=== PATIENT | female | born 1965 | race Caucasian/White ===

== ENCOUNTER 2016-06-05 17:42 | Emergency (ER) | payer MEDICAID ==
[2016-06-05] MEDS ORDERED: ALBUTEROL NEB 2.5 MG/3 ML INH STA (18:09)
[2016-06-05] MEDS ORDERED: SODIUM CHLORIDE 0.9% 1,000 ML IV ONE (18:09)
[2016-06-05] MEDS ORDERED: HYDROmorphone 1 MG/ML SYRINGE IVP STA (18:09)
[2016-06-05] MEDS ORDERED: KETOROLAC 60 MG/2 ML VIAL IVP STA (18:09)
[2016-06-05] MEDS ORDERED: ALBUTEROL NEB 2.5 MG/3 ML INH ONE (18:17)
[2016-06-05] MEDS ORDERED: KETOROLAC 30 MG/ML VIAL ONE (18:28)
== END 2016-06-05 19:35 | disposition home or self-care (01) ==
DX: J20.8 Acute bronchitis due to other specified organisms (principal); I10 Essential (primary) hypertension
CPT/HCPCS: 71020; 87275; 87276; 94640; 96374; 99283; 99284; J7613

== ENCOUNTER 2016-08-01 08:56 | Outpatient (CLI) | payer MEDICAID | END 2016-08-01 08:57 | disposition home or self-care (01) | DX: I10 Essential (primary) hypertension (principal); Z13.220 Encounter for screening for lipoid disorders; E03.9 Hypothyroidism, unspecified ==

== ENCOUNTER 2016-08-23 21:08 | Emergency (ER) | payer MEDICAID ==
[2016-08-23] MEDS ORDERED: HYDROcod/ACET 5/325 Prepack 6 PO STA (21:34)
[2016-08-23] MEDS ORDERED: diazePAM INJ 5 MG/ML SYRINGE IM STA (21:34)
[2016-08-23] MEDS ORDERED: HYDROcod/ACET 5/325 Prepack 6 PO ONE ×2 (21:40→21:43)
[2016-08-23] MEDS ORDERED: diazePAM INJ 5 MG/ML SYRINGE ONE ×2 (21:40→21:44)
== END 2016-08-23 21:48 | disposition home or self-care (01) ==
DX: M54.12 Radiculopathy, cervical region (principal); I10 Essential (primary) hypertension; E03.9 Hypothyroidism, unspecified

== ENCOUNTER 2016-10-17 10:50 | Outpatient (CLI) | payer MEDICAID ==
[2016-10-18 21:03] LABS: TEST RESULT REPORT (())
== END 2016-10-17 10:51 | disposition home or self-care (01) ==
LOC: LAB.R 10:50
PROVIDERS: ATTEND Nurse Practitioner Family
DX: K52.9 Noninfective gastroenteritis and colitis, unspecified (principal)
CPT/HCPCS: 81599; 87045; 87046; 87329; 87338; 87493

== ENCOUNTER 2016-12-06 22:08 | Emergency (ER) | payer MEDICAID ==
[2016-12-06 22:29] VITALS: BP 126/85
[2016-12-06] MEDS ORDERED: KETOROLAC 60 MG/2 ML VIAL IM STA (22:36)
[2016-12-06] MEDS ORDERED: DEXAMETHASONE 10 MG/ML VIAL PO STA (22:37)
[2016-12-06] MEDS ORDERED: DEXAMETHASONE 10 MG/ML VIAL ONE (22:45)
[2016-12-06] MEDS ORDERED: KETOROLAC 60 MG/2 ML VIAL ONE (22:45)
--- NOTE | 2016-12-06 22:50 | ED Physician Documentation ---
PD HPI BACK PAIN - Stated complaint Stated Complaint: BACK PX - Chief complaint Chief Complaint: Back Pain - History obtained from History obtained from: Patient - History of Present Illness Timing - onset: Chronic Timing - details: Gradual onset, Waxing and waning Location: Lower, Right Quality: Pain, Spasm, Similar to prior episodes Associated symptoms: No: Fever, Weakness, Incontinent of urine, Unable to urinate, Hematuria Similar symptoms before: Work up / diagnostics, Treatment, Follow up Recently seen: Not recently seen - Additional information Additional information: Patient is a 51 year old female with a history of multiple orthopedic problems including sciatica who is presenting to the emergency department for right lower back pain with radiation down her right leg. Patient states that it is similar to her previous episodes. Patient denies any trauma or neurological disfunction. Review of Systems Constitutional: denies: Fever, Chills Eyes: denies: Decreased vision Nose: denies: Rhinorrhea / runny nose, Congestion Throat: denies: Sore throat Cardiac: denies: Chest pain / pressure GI: denies: Abdominal Pain, Nausea, Vomiting : denies: Dysuria, Frequency, Hesitancy, Unable to Void, Incontinent Skin: denies: Rash, Lesions, Abrasion (s) Musculoskeletal: reports: Back pain, Extremity pain Neurologic: reports: Numbness. 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 : None HEENT: None Psych: ADD/ADHD Musculoskeletal: None, Chronic back pain Derm: None - Past Surgical History Past Surgical History: Yes General: Appendectomy /CHURCH ADMINISTRATOR: section - Present Medications Home Medications: Ambulatory Orders Medication Instructions Recorded Confirmed Levothyroxine [Synthroid] 25 mcg PO QDAC 11/12/12 06/05/16 Hydrochlorothiazide 1 tab PO DAILY 06/05/14 06/05/16 Dextroamphetamine/Amphetamine 20 mg PO BID #8 tablet 02/11/15 06/05/16 [Adderall 20 mg Tablet] HYDROcod/ACETAM 5/325 [[place] 5/325] 1 - 2 ea PO Q6H PRN #15 tablet 08/23/16 traZODone [Desyrel] 100 mg PO BID 08/23/16 08/23/16 - Allergies Allergies/Adverse Reactions: Allergies Allergy/AdvReac Type Severity Reaction Status Date / Time Penicillins Allergy Intermediate Hives Verified 12/06/16 22:29 - Social History Does the pt smoke?: No Smoking Status: Never smoker Does the pt drink ETOH?: No Does the pt have substance abuse?: No - Immunizations Immunizations are current?: Yes - POLST Patient has POLST: No PD ED PE NORMAL - Vitals Vital signs reviewed: Yes - General General: Alert and oriented X 3, No acute distress - HEENT HEENT: Atraumatic, PERRL - Neck Neck: Supple, no meningeal sign - Cardiac Cardiac: RRR, No murmur - Respiratory Respiratory: No respiratory distress - Abdomen Abdomen: Soft, Non distended - Derm Derm: Normal color, Warm and dry, No rash - Neuro Neuro: Alert and oriented X 3, No motor deficit, No sensory deficit, Normal speech - Psych Psych: Normal mood PD ED PE EXPANDED - Extremities Extremities: Right leg (tenderness to palpation over right hip radiating down her right leg, no gross deformity) Results - Vitals Vitals: Vital Signs - 24 hr 12/06/16 22:27 Temperature 36.8 C Heart Rate 81 Respiratory 18 Rate Blood Pressure 126/85 H O2 Saturation 99 Oxygen O2 Source Room air PD MEDICAL DECISION MAKING - ED course Complexity details: reviewed old records, re-evaluated patient, considered differential, d/w patient, d/w family ED course: Patient was seen and examined at bedside. patient had normal vital signs and was in no acute distress. patient was treated with toradol and decadron. Patient was able to ambulate without difficulty and showed no signs of neurological disfunction. patient required no further work up at this time and was stable for discharge with outpatient follow up. Departure - Departure Disposition: 01 Home, Self Care Clinical Impression: Sciatica Condition: Good Instructions: ED Sciatica Follow-Up: Alexandra Levin ARNP [Primary Care Provider] - As Needed Comments: Your symtpoms today are likely an exacerbation of your sciatica. You should continue with your home therapy with the stretching and meds you have been prescribed. You should follow up with your pmd if your symptoms persist. You may return to the emergency department at any time for new, worsening or uncontrollable symptoms.
== END 2016-12-06 23:00 | disposition home or self-care (01) ==
LOC: ED 22:08
DX: M54.41 Lumbago with sciatica, right side (principal); I10 Essential (primary) hypertension; E03.9 Hypothyroidism, unspecified
CPT/HCPCS: 96372; 99283

== ENCOUNTER 2017-01-04 07:48 | Outpatient (CLI) | payer MEDICAID ==
--- NOTE | 2017-01-04 09:26 | MRI Report ---
EXAM: MRI CERVICAL SPINE WITHOUT CONTRAST EXAM DATE: 01/04/2017 08:32 AM. CLINICAL HISTORY: Report of right neck pain and swelling for years. History of previous spine injury. COMPARISONS: No prior MRI. Correlation is made with previous cervical spine CT performed 12/08/2014.. TECHNIQUE: Multiplanar, multisequence T1-weighted and fluid-sensitive sequences of the cervical spine without contrast. Other: None. FINDINGS: Neurologic Structures: The visualized posterior fossa structures are unremarkable. No signal abnormal ity in the visualized spinal cord. Alignment: No change of alignment. Approximately 2 mm chronic degenerative C3 on C4 anterolisthesis. Bone Marrow: Mild reactive appearing marrow edema is seen in the right C1 lateral mass adjacent to th e odontoid process and right occipital condyle. Asymmetric arthritic changes were seen previously on the CT in this vicinity, at the right atlantoaxial and atlantooccipital joints. Interspace Levels/Facets: C1-C2: Patent central canal. Mild appearing chronic asymmetric arthritic changes are present on the r ight. C2-C3: Mild degenerative disk disease. Marginal spurring and shallow disk bulge but no central stenos is or cord impingement. Mild bilateral facet arthropathy. Widely patent left neural foramen. The righ t neural foramen is at least mildly stenotic. C3-C4: Moderate degenerative disk disease. Shallow broad-based disk bulge. Minimal central stenosis b ut no cord impingement. Patent right neural foramen. Foraminal stenosis on the left is mild to modera te. Moderately prominent facet arthropathy on the left. Mild to moderate right facet arthropathy is p resent. 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 C4-C5: Minimal to mild degenerative disk disease. Shallow asymmetric left of midline broad-based disk bulge. No significant central stenosis. Patent right foramen. Asymmetric moderately prominent hypert rophic degenerative facet arthropathy on the left which combined with uncinate process hypertrophy an d spurring creates the appearance of at least moderate degenerative foraminal stenosis on the left. C5-C6: Mild to moderate degenerative disk disease and facet arthropathy. Broad-based disk bulge with ventral thecal sac indentation but no significant central stenosis or cord impingement. Widely patent right foramen. Minimal to mild left foraminal narrowing from uncinate process and facet hypertrophy. C6-C7: Mild degenerative disk disease. Shallow bulging annulus. Mild facet arthropathy. No stenosis. C7-T1: Mild to moderate facet arthropathy. Intact disk space. No discrete herniation or stenosis. Musculature: Normal. No edema or fatty atrophy. Other: None. IMPRESSION: 1. Chronic multilevel hypertrophic degenerative changes are present at multiple cervical spinal level s as detailed above. 2. Hypertrophic degenerative facet arthropathy is present at multiple levels, especially prominent on the left at C3-C4, C4-C5 and C5-C6. 3. 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 4. Mild disk bulges at multiple levels but no significant central stenosis or cord impingement. 5. Degenerative foraminal stenosis is most notable on the left at C3-C4 and C4-C5. 6. No focal spinal cord signal abnormality. 7. Unchanged mild degenerative anterolisthesis of C3 on C4. [facility] Referring Provider Line: [phone] SITE ID: [id number]
== END 2017-01-04 07:49 | disposition home or self-care (01) ==
LOC: DI 07:48
PROVIDERS: ATTEND Nurse Practitioner Family
DX: M50.31 Other cervical disc degeneration, high cervical region (principal)
CPT/HCPCS: 72141

== ENCOUNTER 2017-02-08 23:04 | Emergency (ER) | payer MEDICAID ==
[2017-02-08 23:13] VITALS: BP 138/89
[2017-02-08] MEDS ORDERED: KETOROLAC 60 MG/2 ML VIAL IM STA (23:20)
[2017-02-08] MEDS ORDERED: DEXAMETHASONE 10 MG/ML VIAL PO STA (23:20)
--- NOTE | 2017-02-08 23:26 | ED Physician Documentation ---
PD HPI NECK PAIN - Stated complaint Stated Complaint: NECK PAIN - Chief complaint Chief Complaint: General - History obtained from History obtained from: Patient - History of Present Illness Timing - onset: Today Timing - details: Gradual onset, Still present Location: Right Quality: Spasm, Similar to prior episodes Worsened by: Movement Similar symptoms before: Work up / diagnostics, Treatment, Follow up Recently seen: Not recently seen - Additional information Additional information: Patient is a 51 year old female with a history of multiple cervical spine abnormalities diagnosed on mri who is presenting for a muscle spasm in her neck. patient states that it just seized up. Patient denies any numbness, tingling or weakness. Review of Systems Constitutional: reports: Myalgias. denies: Fever, Chills Eyes: denies: Decreased vision Ears: denies: Ear pain, Drainage/discharge Nose: denies: Congestion Throat: denies: Dental pain / toothache Cardiac: denies: Chest pain / pressure, Palpitations Respiratory: reports: Reviewed and negative GI: denies: Nausea, Vomiting : reports: Reviewed and negative Skin: denies: Rash, Lesions, Abrasion (s) Musculoskeletal: reports: Neck pain Neurologic: denies: Generalized weakness, Focal weakness, Numbness Psychiatric: denies: Depressed Immunocompromised: denies: Immunocompromised PD PAST MEDICAL HISTORY - Past Medical History Past Medical History: Yes Cardiovascular: Hypertension Respiratory: None Neuro: None Endocrine/Autoimmune: None, HyPOthyroidism GI: None 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 : None HEENT: None Psych: ADD/ADHD Musculoskeletal: None, Chronic back pain Derm: None - Past Surgical History Past Surgical History: Yes General: Appendectomy /TABLE SAW OPERATOR: section - Present Medications Home Medications: Ambulatory Orders Medication Instructions Recorded Confirmed Levothyroxine [Synthroid] 25 mcg PO QDAC 11/12/12 06/05/16 Hydrochlorothiazide 1 tab PO DAILY 06/05/14 06/05/16 Dextroamphetamine/Amphetamine 20 mg PO BID #8 tablet 02/11/15 06/05/16 [Adderall 20 mg Tablet] HYDROcod/ACETAM 5/325 [[place] 5/325] 1 - 2 ea PO Q6H PRN #15 tablet 08/23/16 traZODone [Desyrel] 100 mg PO BID 08/23/16 08/23/16 - Allergies Allergies/Adverse Reactions: Allergies Allergy/AdvReac Type Severity Reaction Status Date / Time Penicillins Allergy Intermediate Hives Verified 02/08/17 23:13 - Social History Does the pt smoke?: No Smoking Status: Never smoker Does the pt drink ETOH?: No Does the pt have substance abuse?: No - Immunizations Immunizations are current?: Yes - POLST Patient has POLST: No PD ED PE NORMAL - Vitals Vital signs reviewed: Yes - General General: Alert and oriented X 3, No acute distress, Well developed/nourished - HEENT HEENT: Atraumatic, PERRL, Moist mucous membranes - Neck Neck: Supple, no meningeal sign - Cardiac Cardiac: RRR, No murmur - Respiratory Respiratory: No respiratory distress - Abdomen Abdomen: Non distended - Derm Derm: Normal color, Warm and dry, No rash - Extremities Extremities: No deformity, Normal ROM s pain, No edema - Neuro Neuro: Alert and oriented X 3, No motor deficit, No sensory deficit, Normal speech - Psych Psych: Normal mood, Normal affect PD ED PE EXPANDED - Neck Neck: Soft tissue TTP (tenderness and mild hypertonicity of bilateral paraspinal muscles) Results - Vitals Vitals: Vital Signs - 24 hr 02/08/17 23:11 Temperature 36.6 C Heart Rate 86 Respiratory 16 Rate Blood Pressure 138/89 H O2 Saturation 100 Oxygen O2 Source Room air PD MEDICAL DECISION MAKING - ED course Complexity details: reviewed old records, re-evaluated patient, considered differential, d/w patient ED course: Patient was seen and examined at bedside. Patient was well appearing and in no acute distress. patient had no neurological deficits. Patient was treated with toradol and decadron. patient required no further work up at this time and was stable for discharge with outpatient follow up. Departure - Departure Disposition: 01 Home, Self Care Clinical Impression: Neck muscle spasm Condition: Good Instructions: Neck Probs Follow-Up: Alexandra Levin ARNP [Primary Care Provider] - As Needed Comments: You should continue with your pain management and follow up with your neurologist. You should return to the emergency department at any time for focal neurological deficits, fevers, chills, new, worsening or uncontrollable symptoms.
[2017-02-08] MEDS ORDERED: DEXAMETHASONE 10 MG/ML VIAL ONE (23:28)
[2017-02-08] MEDS ORDERED: CHERRY SYRUP 10 ML UDC PO ONE (23:28)
[2017-02-08] MEDS ORDERED: KETOROLAC 60 MG/2 ML VIAL ONE (23:28)
== END 2017-02-08 23:47 | disposition home or self-care (01) ==
LOC: ED 23:04
DX: M62.838 Other muscle spasm (principal); M54.2 Cervicalgia; I10 Essential (primary) hypertension; E03.9 Hypothyroidism, unspecified
CPT/HCPCS: 96372; 99283; A9270

== ENCOUNTER 2017-02-27 14:18 | Outpatient (CLI) | payer MEDICAID ==
[2017-03-03 00:42] LABS: AMPHETAMINE >10000 ng/mL (< 250); AMPHETAMINES POSITIVE ng/mL (< 500); BARBITURATES NEGATIVE ng/mL (< 300); BENZODIAZEPINES NEGATIVE ng/mL (< 100); MARIJUANA METABOLITE NEGATIVE ng/mL (< 20); MEDMATCH AMPHETAMINE INCONSISTENT; MEDMATCH BARBITURATES CONSISTENT (-); MEDMATCH BENZODIAZEPINES CONSISTENT (-); MEDMATCH COCAINE METAB CONSISTENT (-); MEDMATCH MARIJUANA METAB CONSISTENT (-); MEDMATCH METHADONE METAB CONSISTENT (-); MEDMATCH METHAMPHETAMINE CONSISTENT (-); MEDMATCH OPIATES CONSISTENT (-); MEDMATCH OXYCODONE CONSISTENT (-); MEDMATCH PHENCYCLIDINE CONSISTENT (-); METHADONE METABOLITE NEGATIVE ng/mL (< 100); OPIATES NEGATIVE ng/mL (< 100); OXIDANT NEGATIVE mcg/mL (< 200); PHENCYCLIDINE NEGATIVE ng/mL (< 25)
== END 2017-02-27 14:19 | disposition home or self-care (01) ==
LOC: LAB.R 14:18
PROVIDERS: ATTEND Nurse Practitioner Family
DX: F90.0 Attention-deficit hyperactivity disorder, predominantly inattentive type (principal)
CPT/HCPCS: 80307

== ENCOUNTER 2017-07-01 13:23 | Outpatient (CLI) | payer MEDICAID | END 2017-07-01 13:24 | disposition home or self-care (01) | LOC: LAB.R 13:23 | PROVIDERS: ATTEND Nurse Practitioner Family | DX: F90.0 Attention-deficit hyperactivity disorder, predominantly inattentive type (principal) | CPT/HCPCS: 80307; 80354; 80362; 81599 ==

== ENCOUNTER 2017-08-01 01:53 | Emergency (ER) | payer MEDICAID ==
[2017-08-01 02:03] VITALS: BP 158/96
--- NOTE | 2017-08-01 02:28 | ED Physician Documentation ---
PD HPI LOWER EXT INJURY - Stated complaint Stated Complaint: R ANKLE PX - Chief complaint Chief Complaint: Ext Problem - History obtained from History obtained from: Patient - History of Present Illness PD HPI LOW EXT INJURY LOCATION: Right, Ankle Type of injury: Twist Where injury occurred: Other Timing - onset: Today Timing - details: Abrupt onset Improved by: Immobilization Worsened by: Moving, Palpating Associated symptoms: Swelling, Discolored Similar symptoms before: Has not had sx before Recently seen: Not recently seen - Additional information Additional information: Patient is a 52 year old female presenting to the emergency department for left sided ankle pain. Patient was [facility] when she twisted her ankle. Patient denies any other trauma at this time. 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 : None HEENT: None Psych: ADD/ADHD Musculoskeletal: None, Chronic back pain Derm: None - Past Surgical History Past Surgical History: Yes General: Appendectomy /BLADE GRADER OPERATOR: section - Present Medications Home Medications: Ambulatory Orders Medication Instructions Recorded Confirmed Levothyroxine [Synthroid] 25 mcg PO QDAC 11/12/12 06/05/16 Hydrochlorothiazide 1 tab PO DAILY 06/05/14 06/05/16 Dextroamphetamine/Amphetamine 20 mg PO BID #8 tablet 02/11/15 06/05/16 [Adderall 20 mg Tablet] HYDROcod/ACETAM 5/325 [[place] 5/325] 1 - 2 ea PO Q6H PRN #15 tablet 08/23/16 traZODone [Desyrel] 100 mg PO BID 08/23/16 08/23/16 - Allergies Allergies/Adverse Reactions: Allergies Allergy/AdvReac Type Severity Reaction Status Date / Time Penicillins Allergy Intermediate Hives Verified 08/01/17 02:03 - Social History Does the pt smoke?: No Smoking Status: Never smoker Does the pt drink ETOH?: No Does the pt have substance abuse?: No - Immunizations Immunizations are current?: Yes - POLST Patient has POLST: No PD ED PE NORMAL - Vitals Vital signs reviewed: Yes - General General: Alert and oriented X 3, No acute distress - HEENT HEENT: Atraumatic, PERRL - Cardiac Cardiac: RRR - Respiratory Respiratory: No respiratory distress - Abdomen Abdomen: Non distended - Neuro Neuro: Alert and oriented X 3, No sensory deficit Eye Opening: Spontaneous Motor: Obeys Commands Verbal: Oriented GCS Score: 15 PD ED PE EXPANDED - Extremities Extremities: Right ankle (tenderness, swelling and ecchymosis over right lateral maleolus) Results - Vitals Vitals: Vital Signs - 24 hr 08/01/17 02:02 Temperature 36.7 C Heart Rate 101 H Respiratory 16 Rate Blood Pressure 158/96 H O2 Saturation 100 Oxygen O2 Source Room air - Rads (name of study) right ankle x-ray Radiology: Final report received (possible tiny avulsion fracture) PD MEDICAL DECISION MAKING - ED course Complexity details: reviewed old records, reviewed results, re-evaluated patient , considered differential, d/w patient ED course: Patient was seen and examined at bedside. imaging was ordered and reviewed. there was a questionable tiny avulsion fracture. Patient was placed in an ankle brace and offered crutches. Patient was offered tylenol (patient has a no narcotic policy on her jarocho). there was a patient awaiting a central line and another critical patient coming in on bipap and patient was made told I had to go. Patient refused and walked out before receiving her discharge paperwork. Departure - Departure Disposition: 01 Home, Self Care Clinical Impression: Avulsion fracture of ankle Condition: Good Instructions: ED Splint Care Aircast Splint Boot Follow-Up: Goran Almanza MD [Provider Admit Priv/Credential] - Tomorrow Comments: Your symptoms today are being caused by a sprained ankle and possible a tiny fracture. The treatment is the same with rest, elevation, compression and ice. You should follow up with Dr. Almanza's office tomorrow. Discharge Date/Time: 08/01/17 03:31
--- NOTE | 2017-08-01 03:18 | XRAY Report ---
EXAM: RIGHT ANKLE RADIOGRAPHY EXAM DATE: 08/01/2017 02:41 AM. CLINICAL HISTORY: Injury to R ankle. COMPARISON: None. TECHNIQUE: 3 views. FINDINGS: Bones: Tiny edilma of calcium distal to the fibular tip could be a tiny avulsion fracture. No other ri ght ankle fracture seen. Joints: Normal. No effusion. No subluxations. The ankle mortise is normally aligned. Soft Tissues: Lateral soft tissue swelling. IMPRESSION: Tiny edilma of calcium distal to the fibular tip could be a tiny avulsion fracture. [facility] Referring Provider Line: [phone] SITE ID: [id number]
[2017-08-01] MEDS ORDERED: ACETAMINOPHEN 500 MG TABLET PO STA (03:23)
== END 2017-08-01 03:31 | disposition home or self-care (01) ==
LOC: ED 01:53
DX: S82.831A Other fracture of upper and lower end of right fibula, initial encounter for closed fracture (principal); S93.401A Sprain of unspecified ligament of right ankle, initial encounter; I10 Essential (primary) hypertension; X50.1XXA Overexertion from prolonged static or awkward postures, initial encounter; Y92.59 Other trade areas as the place of occurrence of the external cause
CPT/HCPCS: 73610; 99283; A9270

== ENCOUNTER 2017-08-22 11:00 | Outpatient (CLI) | payer MEDICAID ==
[2017-08-22 17:18] LABS: MUDS CUTOFF CONCENTRATIONS CUTOFF CONC BELOW:
[2017-08-22 17:33] LABS: AMPHETAMINE SCREEN,URINE POSITIVE (NEGATIVE); BENZODIAZEPINES SCREEN, URINE NEGATIVE (NEGATIVE); COCAINE SCREEN URINE NEGATIVE (NEGATIVE); METHADONE SCREEN, URINE NEGATIVE (NEGATIVE); METHAMPHETAMINES SCREEN, URINE NEGATIVE (NEGATIVE); OPIATE SCREEN, URINE NEGATIVE (NEGATIVE); OXYCODONE SCREEN, URINE NEGATIVE (NEGATIVE); PROPOXYPHENE SCREEN, URINE NEGATIVE (NEGATIVE); TRICYCLIC ANTIDEPRESSANT,URINE NEGATIVE (NEGATIVE)
== END 2017-08-22 11:01 | disposition home or self-care (01) ==
LOC: LAB.R 11:00
PROVIDERS: ATTEND Nurse Practitioner Family
DX: F90.0 Attention-deficit hyperactivity disorder, predominantly inattentive type (principal)
CPT/HCPCS: 80306

== ENCOUNTER 2017-11-19 08:27 | Outpatient (CLI) | payer MEDICAID ==
--- NOTE | 2017-11-19 17:10 | MRI Report ---
Procedure Date: 11/19/2017 Accession Number: [id number] / [id number] Procedure: MRI - Ankle RT W/O CPT Code: FULL RESULT: EXAM: RIGHT ANKLE/HINDFOOT MRI WITHOUT CONTRAST EXAM DATE: 11/19/2017 09:24 AM. CLINICAL HISTORY: Sprain of other ligament of right ankle, sequela. COMPARISON: 08/01/2017. TECHNIQUE: Multiplanar, multisequence T1-weighted and fluid-sensitive sequences of the ankle/hindfoot without contrast. Other: None. FINDINGS: Bones and articular surfaces: No significant ankle joint effusion. Subchondral cyst formation at the medial margin of the tibial plafond. There may be a slight degree of overlying cartilage fissuring. No significant articular cartilage defect. Small focus of cartilage fissuring and subchondral edema at the distal aspect of the medial cuneiform at the first tarsometatarsal articulation. Otherwise, no significant articular cartilage defects. Musculotendinous structures: The Achilles tendon and plantar fascia appear intact. Trace fluid at the retrocalcaneal bursa. Visualized anterior, posterior, and posterior lateral ankle tendons appear intact without evidence of significant tendinosis. There is moderate fluid associated with the flexor hallucis longus tendon distal to the sustentaculum ofelia with a smaller volume of fluid proximally. No muscle edema, atrophy or fatty replacement within the [id number]. Ligaments: There is ill-definition and heterogenous signal involving the otherwise intact anterior talofibular ligament. The posterior talofibular ligament, calcaneofibular, and deltoid ligaments appear grossly intact. Normal signal within the tarsal sinus. IMPRESSION: 1. Mild flexor hallucis longus tenosynovitis. 2. Mild degenerative subchondral edema and cartilage fissuring at the first tarsometatarsal articulation. 3. Focal subchondral cyst formation at the medial tibial plafond. Possible associated slight cartilage fissure. No significant cartilage defect. [facility] MUSCULOSKELETAL RADIOLOGY SECTION
== END 2017-11-19 08:28 | disposition home or self-care (01) ==
LOC: DI 08:27
PROVIDERS: ATTEND Orthopaedic Surgery
DX: S93.491S Sprain of other ligament of right ankle, sequela (principal); M65.871 Other synovitis and tenosynovitis, right ankle and foot

== ENCOUNTER 2018-05-29 08:01 | Outpatient (CLI) | payer MEDICAID ==
[2018-05-29 08:27] LABS: BASOPHILS # (AUTO) 0.2 10^3/uL (0.0-0.1); BASOPHILS % (AUTO) 2.8 %; EOSINOPHILS # (AUTO) 0.2 10^3/uL (0.0-0.7); EOSINOPHILS % (AUTO) 2.3 %; HGB - HEMOGLOBIN 12.6 g/dL (12.0-16.0); LYMPHOCYTES % (AUTO) 33.9 %; MEAN CORPUSCULAR HEMOGLOBIN 29.9 pg (27.0-31.0); MEAN CORPUSCULAR VOLUME 87.9 fL (81.0-99.0); MEAN PLATELET VOLUME 8.6 fL (7.9-10.8); MONOCYTES # (AUTO) 0.6 10^3/uL (0.0-1.0); MONOCYTES % (AUTO) 6.3 %; NEUTROPHILS # (AUTO) 4.8 10^3/uL (1.5-6.6); NEUTROPHILS % (AUTO) 54.7 %; PLT - PLATELET COUNT 391 10^3/uL (130-450); RED CELL DISTRIBUTION WIDTH 13.2 % (12.0-15.0); WHITE BLOOD COUNT 8.8 x10^3/uL (4.8-10.8)
[2018-05-29 08:41] LABS: ALBUMIN 3.9 g/dL (3.2-5.5); ALBUMIN/GLOBULIN RATIO 1.2 (1.0-2.2); ALKALINE PHOSPHATASE 71 IU/L (42-121); ALT ALANINE AMINOTRANSFERASE 15 IU/L (10-60); AST ASPARTATE AMINOTRANSFERASE 20 IU/L (10-42); BILIRUBIN,TOTAL 0.5 mg/dL (0.2-1.0); BUN - BLOOD UREA NITROGEN 18 mg/dL (6-20); CALCIUM 9.4 mg/dL (8.5-10.3); CARBON DIOXIDE - CO2 30 mmol/L (21-32); CHLORIDE 97 mmol/L (101-111); CHOL/HDL RATIO 2.6 (<4.4); CHOLESTEROL 165 mg/dL; GFR - MDRD 58 (>89); GLUCOSE 94 mg/dL (70-100); HDL CHOLESTEROL 63 mg/dL; LDL CHOLESTEROL,CALCULATED 85 mg/dL; LDL/HDL RATIO 1.3 (<4.4); SODIUM 137 mmol/L (135-145); TOTAL PROTEIN 7.2 g/dL (6.7-8.2); VLDL CHOLESTEROL 17 mg/dL
[2018-05-29 10:03] LABS: THYROID STIMULATING HORMONE 1.58 uIU/mL (0.34-5.60)
[2018-05-29 10:05] LABS: FREE T4 (FREE THYROXINE) 1.17 ng/dL (0.58-1.64)
== END 2018-05-29 08:02 | disposition home or self-care (01) ==
LOC: LAB 08:01
PROVIDERS: ATTEND Nurse Practitioner Family
DX: I10 Essential (primary) hypertension (principal); Z13.220 Encounter for screening for lipoid disorders; E03.9 Hypothyroidism, unspecified
CPT/HCPCS: 36415; 80050; 80061; 83721; 84439

== ENCOUNTER 2018-09-03 08:00 | Outpatient (CLI) | payer MEDICAID ==
[2018-09-03 18:19] LABS: MUDS CUTOFF CONCENTRATIONS CUTOFF CONC BELOW:
[2018-09-03 18:55] LABS: AMPHETAMINE SCREEN,URINE POSITIVE (NEGATIVE); BENZODIAZEPINES SCREEN, URINE NEGATIVE (NEGATIVE); COCAINE SCREEN URINE NEGATIVE (NEGATIVE); METHADONE SCREEN, URINE NEGATIVE (NEGATIVE); METHAMPHETAMINES SCREEN, URINE NEGATIVE (NEGATIVE); OPIATE SCREEN, URINE NEGATIVE (NEGATIVE); OXYCODONE SCREEN, URINE NEGATIVE (NEGATIVE); PROPOXYPHENE SCREEN, URINE NEGATIVE (NEGATIVE); TRICYCLIC ANTIDEPRESSANT,URINE NEGATIVE (NEGATIVE)
== END 2018-09-03 23:59 | disposition home or self-care (01) ==
LOC: LAB.R 08:00
PROVIDERS: ATTEND Nurse Practitioner Family
DX: F90.0 Attention-deficit hyperactivity disorder, predominantly inattentive type (principal)
CPT/HCPCS: 80306

== ENCOUNTER 2018-12-31 17:06 | Outpatient (CLI) | payer OTHER ==
--- NOTE | 2019-01-01 13:45 | XRAY Report ---
Reason: WEIGHT LOSS 50 LBS, ABNL LUNG SOUNDS, OTHER SPECIF Procedure Date: 12/31/2018 Accession Number: [id number] / [id number] Procedure: XR - Chest 2 View X-Ray CPT Code: 73009 FULL RESULT: EXAM: CHEST RADIOGRAPHY EXAM DATE: 12/31/2018 05:34 PM. CLINICAL HISTORY: Productive cough for 2 weeks. WEIGHT LOSS 50 LBS, ABNL LUNG SOUNDS, OTHER SPECIF. COMPARISON: SHOULDER 2 VIEW RT 10/30/2017 2:17 PM CHEST 2 VIEW PA/LAT 06/05/2016 6:44 PM. TECHNIQUE: 2 views. FINDINGS: Lungs/Pleura: No focal opacities evident. No pleural effusion. No pneumothorax. Normal volumes. Mediastinum: Heart and mediastinal contours are unremarkable. Other: Status post bilateral breast implants with mild capsular calcification, greater on the left, is again noted, similar to prior exam. The shortening of the bilateral clavicle bones visualized, no significant interval changes. IMPRESSION: Negative 2-view chest radiography. [facility]
== END 2018-12-31 17:07 | disposition home or self-care (01) ==
LOC: DI 17:06
PROVIDERS: ATTEND Internal Medicine
DX: R09.89 Other specified symptoms and signs involving the circulatory and respiratory systems (principal); R63.4 Abnormal weight loss
CPT/HCPCS: 71046

== ENCOUNTER 2019-01-02 09:16 | Outpatient (CLI) | payer OTHER ==
--- NOTE | 2019-01-07 08:37 | Mammography Report ---
Reason: ANNUAL SCREENING Procedure Date: 01/02/2019 Accession Number: [id number] / [id number] Procedure: FAB - Screening Mammo Impl w/Shad CPT Code: FULL RESULT: EXAM: Screening Mammo Impl w/Shad DATE: 01/02/2019 10:02 AM CLINICAL HISTORY: Screening encounter. History of early menses. History of bilateral prepectoral saline implants. TECHNIQUE: (B) - Bilateral CC and MLO views were obtained. Views were obtained in standard and implant displaced fashion. COMPARISON: 12/07/2011 through 05/03/2005. PARENCHYMAL PATTERN: (A) - The breast(s) demonstrate(s) scattered fibroglandular densities. FINDINGS: Bilateral retromammary/prepectoral saline implants are again noted, intact-appearing. There are no suspicious masses, calcifications, or areas of distortion. IMPRESSION: Benign findings. BI-RADS category 2. RECOMMENDATION: (ANNUAL) - Recommend routine annual screening mammography. BI-RADS CATEGORY: (2) - Benign Findings. STANDARD QUALIFYING STATEMENTS: 1. This examination was not reviewed with the aid of Computer-Aided Detection (CAD). 2. A negative or benign imaging report should not preclude biopsy if clinically suspicious findings are present. 3. Dense breasts may obscure an underlying neoplasm. 4. This examination was reviewed with the aid of 3D breast imaging (tomosynthesis).
== END 2019-01-02 09:17 | disposition home or self-care (01) ==
LOC: DI 09:16
PROVIDERS: ATTEND Internal Medicine
DX: Z12.31 Encounter for screening mammogram for malignant neoplasm of breast (principal); Z98.82 Breast implant status
CPT/HCPCS: 77063; 77067

== ENCOUNTER 2020-04-18 20:29 | Outpatient (CLI) | payer MEDICAID | END 2020-04-18 20:30 | disposition home or self-care (01) | LOC: COV 20:29 | PROVIDERS: ATTEND Family Medicine | DX: R05 Cough (principal); M79.10 Myalgia, unspecified site; R53.83 Other fatigue; R43.8 Other disturbances of smell and taste; R09.81 Nasal congestion; J34.89 Other specified disorders of nose and nasal sinuses; Z20.828 Contact with and (suspected) exposure to other viral communicable diseases ==

== ENCOUNTER 2021-02-08 07:52 | Outpatient (CLI) | payer MEDICAID ==
[2021-02-08 08:08] LABS: BASOPHILS # (AUTO) 0.2 10^3/uL (0.0-0.1); BASOPHILS % (AUTO) 1.6 %; EOSINOPHILS # (AUTO) 0.2 10^3/uL (0.0-0.7); EOSINOPHILS % (AUTO) 1.7 %; HCT - HEMATOCRIT 38.9 % (37.0-47.0); HGB - HEMOGLOBIN 13.3 g/dL (12.0-16.0); LYMPHOCYTES # (AUTO) 3.1 10^3/uL (1.5-3.5); MEAN CORPUSCULAR HEMOGLOBIN 30.3 pg (27.0-31.0); MEAN CORPUSCULAR HGB CONC 34.2 g/dL (32.0-36.0); MEAN CORPUSCULAR VOLUME 88.6 fL (81.0-99.0); MEAN PLATELET VOLUME 10.2 fL (7.9-10.8); MONOCYTES # (AUTO) 0.7 10^3/uL (0.0-1.0); MONOCYTES % (AUTO) 6.7 %; NEUTROPHILS # (AUTO) 6.1 10^3/uL (1.5-6.6); NEUTROPHILS % (AUTO) 59.7 %; PLT - PLATELET COUNT 402 10^3/uL (130-450); RED BLOOD COUNT 4.39 10^6/uL (4.20-5.40); RED CELL DISTRIBUTION WIDTH 13.2 % (12.0-15.0); WHITE BLOOD COUNT 10.2 x10^3/uL (4.8-10.8)
[2021-02-08 08:26] LABS: ALBUMIN 4.4 g/dL (3.2-5.5); ALBUMIN/GLOBULIN RATIO 1.1 (1.0-2.2); ALKALINE PHOSPHATASE 80 IU/L (42-121); ALT ALANINE AMINOTRANSFERASE 11 IU/L (10-60); AST ASPARTATE AMINOTRANSFERASE 19 IU/L (10-42); BILIRUBIN,TOTAL 0.6 mg/dL (0.2-1.0); BUN - BLOOD UREA NITROGEN 10 mg/dL (6-20); CALCIUM 9.5 mg/dL (8.5-10.3); CARBON DIOXIDE - CO2 33 mmol/L (21-32); CHLORIDE 90 mmol/L (101-111); CHOL/HDL RATIO 2.7 (<4.4); CHOLESTEROL 213 mg/dL; CREATININE 1.1 mg/dL (0.4-1.0); GFR - MDRD 51 (>89); GLUCOSE 108 mg/dL (70-100); HDL CHOLESTEROL 78 mg/dL; LDL CHOLESTEROL,CALCULATED 116 mg/dL; LDL/HDL RATIO 1.5 (<4.4); POTASSIUM 2.6 mmol/L (3.5-5.0); SODIUM 136 mmol/L (135-145); TOTAL PROTEIN 8.3 g/dL (6.7-8.2); TRIGLYCERIDES 96 mg/dL; VLDL CHOLESTEROL 19 mg/dL
[2021-02-08 08:37] LABS: THYROID STIMULATING HORMONE 1.27 uIU/mL (0.34-5.60)
== END 2021-02-08 07:53 | disposition home or self-care (01) ==
LOC: LAB 07:52
PROVIDERS: ATTEND Physician Assistant
DX: K52.831 Collagenous colitis (principal); N95.0 Postmenopausal bleeding; R51.9 Headache, unspecified; I10 Essential (primary) hypertension; E03.9 Hypothyroidism, unspecified; F98.8 Other specified behavioral and emotional disorders with onset usually occurring in childhood and adolescence; Z84.81 Family history of carrier of genetic disease
CPT/HCPCS: 36415; 80050; 80061; 81599; 83721

== ENCOUNTER 2021-11-06 08:34 | Outpatient (CLI) | payer MEDICAID | END 2021-11-06 08:35 | disposition home or self-care (01) | LOC: LAB 08:34 | PROVIDERS: ATTEND Registered Nurse | DX: E87.6 Hypokalemia (principal) | CPT/HCPCS: 36415; 84132 ==

== ENCOUNTER 2021-11-23 08:24 | Outpatient (CLI) | payer MEDICAID | END 2021-11-23 08:25 | disposition home or self-care (01) | LOC: LAB.N 08:24 | PROVIDERS: ATTEND Registered Nurse | DX: Z53.9 Procedure and treatment not carried out, unspecified reason (principal) ==

== ENCOUNTER 2021-11-28 08:06 | Outpatient (CLI) | payer MEDICAID ==
[2021-11-28 08:25] LABS: BASOPHILS # (AUTO) 0.1 10^3/uL (0.0-0.1); BASOPHILS % (AUTO) 1.6 %; EOSINOPHILS # (AUTO) 0.1 10^3/uL (0.0-0.7); EOSINOPHILS % (AUTO) 1.4 %; HCT - HEMATOCRIT 37.2 % (37.0-47.0); HGB - HEMOGLOBIN 12.6 g/dL (12.0-16.0); LYMPHOCYTES # (AUTO) 2.4 10^3/uL (1.5-3.5); LYMPHOCYTES % (AUTO) 26.3 %; MEAN CORPUSCULAR HEMOGLOBIN 29.5 pg (27.0-31.0); MEAN CORPUSCULAR HGB CONC 33.9 g/dL (32.0-36.0); MEAN CORPUSCULAR VOLUME 87.1 fL (81.0-99.0); MEAN PLATELET VOLUME 9.6 fL (7.9-10.8); MONOCYTES # (AUTO) 0.7 10^3/uL (0.0-1.0); NEUTROPHILS # (AUTO) 5.6 10^3/uL (1.5-6.6); NEUTROPHILS % (AUTO) 62.4 %; PLT - PLATELET COUNT 455 10^3/uL (130-450); RED BLOOD COUNT 4.27 10^6/uL (4.20-5.40); RED CELL DISTRIBUTION WIDTH 12.5 % (12.0-15.0); RETICULOCYTE COUNT % (AUTO) 1.17 % (0.5-2.3)
[2021-11-28 08:44] LABS: CALCIUM 9.6 mg/dL (8.5-10.3); CREATININE 1.1 mg/dL (0.4-1.0); MAGNESIUM 1.6 mg/dL (1.7-2.8); POTASSIUM 2.7 mmol/L (3.5-5.0)
== END 2021-11-28 08:07 | disposition home or self-care (01) ==
LOC: LAB 08:06
PROVIDERS: ATTEND Registered Nurse
DX: I10 Essential (primary) hypertension (principal); R53.82 Chronic fatigue, unspecified; E87.6 Hypokalemia; K52.831 Collagenous colitis; M62.81 Muscle weakness (generalized); K52.9 Noninfective gastroenteritis and colitis, unspecified
CPT/HCPCS: 36415; 80048; 81599; 82607; 82728; 82746; 83020; 83540; 83735; 84466; 85025; 85045

== ENCOUNTER 2022-05-28 08:21 | Outpatient (CLI) | payer MEDICAID ==
[2022-05-28 08:30] LABS: BASOPHILS # (AUTO) 0.1 10^3/uL (0.0-0.1); BASOPHILS % (AUTO) 1.7 %; EOSINOPHILS # (AUTO) 0.2 10^3/uL (0.0-0.7); EOSINOPHILS % (AUTO) 2.6 %; HCT - HEMATOCRIT 39.9 % (37.0-47.0); HGB - HEMOGLOBIN 12.5 g/dL (12.0-16.0); LYMPHOCYTES # (AUTO) 2.6 10^3/uL (1.5-3.5); LYMPHOCYTES % (AUTO) 32.6 %; MEAN CORPUSCULAR HGB CONC 31.3 g/dL (32.0-36.0); MEAN CORPUSCULAR VOLUME 92.6 fL (81.0-99.0); MEAN PLATELET VOLUME 9.7 fL (7.9-10.8); MONOCYTES # (AUTO) 0.6 10^3/uL (0.0-1.0); MONOCYTES % (AUTO) 7.3 %; NEUTROPHILS # (AUTO) 4.5 10^3/uL (1.5-6.6); NEUTROPHILS % (AUTO) 55.6 %; PLT - PLATELET COUNT 373 10^3/uL (130-450); RED BLOOD COUNT 4.31 10^6/uL (4.20-5.40); RED CELL DISTRIBUTION WIDTH 13.8 % (12.0-15.0); WHITE BLOOD COUNT 8.1 x10^3/uL (4.8-10.8)
[2022-05-28 08:49] LABS: ALBUMIN 4.4 g/dL (3.2-5.5); ALBUMIN/GLOBULIN RATIO 1.3 (1.0-2.2); ALKALINE PHOSPHATASE 100 IU/L (42-121); ALT ALANINE AMINOTRANSFERASE 14 IU/L (10-60); AST ASPARTATE AMINOTRANSFERASE 21 IU/L (10-42); BILIRUBIN,TOTAL 0.5 mg/dL (0.2-1.0); BUN - BLOOD UREA NITROGEN 9 mg/dL (6-20); CALCIUM 9.2 mg/dL (8.5-10.3); CARBON DIOXIDE - CO2 26 mmol/L (21-32); CHLORIDE 101 mmol/L (101-111); CHOL/HDL RATIO 2.9 (<4.4); CHOLESTEROL 206 mg/dL; CREATININE 1.2 mg/dL (0.4-1.0); GFR - MDRD 46 (>89); GLUCOSE 65 mg/dL (70-100); HDL CHOLESTEROL 72 mg/dL; LDL CHOLESTEROL,CALCULATED 109 mg/dL; LDL/HDL RATIO 1.5 (<4.4); SODIUM 137 mmol/L (135-145); TOTAL PROTEIN 7.8 g/dL (6.7-8.2); TRIGLYCERIDES 124 mg/dL; VLDL CHOLESTEROL 25 mg/dL
[2022-05-28 09:01] LABS: THYROID STIMULATING HORMONE 3.03 uIU/mL (0.34-5.60)
== END 2022-05-28 08:22 | disposition home or self-care (01) ==
LOC: LAB 08:21
PROVIDERS: ATTEND Registered Nurse
DX: I10 Essential (primary) hypertension (principal); E87.6 Hypokalemia; E03.9 Hypothyroidism, unspecified; Z13.220 Encounter for screening for lipoid disorders
CPT/HCPCS: 36415; 80050; 80061; 83721

== ENCOUNTER 2022-07-07 15:09 | Emergency (ER) | payer MEDICAID ==
--- NOTE | 2022-07-07 15:32 | ED Physician Documentation ---
PD HPI FEMALE - Stated complaint Stated Complaint: FEMALE - Chief complaint Chief Complaint: Abd Pain - History obtained from History obtained from: Patient - Additional information Additional information: Patient is a 57-year-old female presenting for evaluation of difficulty with urination since Saturday. She had a robotic hysterectomy at the [facility] on Saturday and since that time she has felt that she is not emptying her bladder. She feels a lot of suprapubic pressure and need to urinate but only is able to go a small amount. She denies noticing blood in her urine. She reports having generalized lower abdominal discomfort from the surgery. She has also not had a bowel movement since Saturday or Saturday which is not normal for her. She reports having a good appetite and is otherwise been eating fine. She has been occasionally needing Vicodin for pain and is using MiraLAX as well as a stool softener. Review of Systems Constitutional: denies: Fever Cardiac: denies: Chest pain / pressure Respiratory: denies: Dyspnea GI: reports: Abdominal Pain : denies: Dysuria, Incontinent Musculoskeletal: denies: Back pain Neurologic: denies: Headache PD PAST MEDICAL HISTORY - Past Medical History Cardiovascular: Hypertension Respiratory: None Endocrine/Autoimmune: None, HyPOthyroidism GI: None GIRL FRIDAY: None : None HEENT: None Psych: ADD/ADHD Musculoskeletal: None, Chronic back pain Derm: None - Past Surgical History Past Surgical History: Yes General: Appendectomy /GIRL FRIDAY: section - Present Medications Home Medications: Ambulatory Orders Medication Instructions Recorded Confirmed Levothyroxine [Synthroid] 25 mcg PO QDAC 11/12/12 06/05/16 hydroCHLOROthiazide 1 tab PO DAILY 06/05/14 06/05/16 [Hydrochlorothiazide] Dextroamphetamine/Amphetamine 20 mg PO BID #8 tablet 02/11/15 06/05/16 [Adderall 20 mg Tablet] HYDROcod/ACETAM 5/325 [Humphrey 5/325] 1 - 2 ea PO Q6H PRN #15 tablet 08/23/16 traZODone [Desyrel] 100 mg PO BID 08/23/16 08/23/16 - Allergies Allergies/Adverse Reactions: Allergies Allergy/AdvReac Type Severity Reaction Status Date / Time Penicillins Allergy Intermediate Hives Verified 07/07/22 15:20 - Social History Does the pt smoke?: No Smoking Status: Never smoker Does the pt drink ETOH?: No Does the pt have substance abuse?: No - Immunizations Immunizations are current?: Yes - POLST Patient has POLST: No PD ED PE NORMAL - General General: Alert and oriented X 3, No acute distress, Well developed/nourished - HEENT HEENT: Atraumatic - Neck Neck: Supple, no meningeal sign - Cardiac Cardiac: RRR - Respiratory Respiratory: No respiratory distress, Clear bilaterally - Abdomen Abdomen: Normal bowel sounds, Soft, Non distended, Other (4 well-healing incisions with overlying Dermabond, suprapubic tenderness to palpation,) - Derm Derm: Warm and dry - Neuro Neuro: Normal speech Results - Vitals Vitals: Vital Signs - 24 hr 07/07/22 07/07/22 15:16 16:13 Temperature 37.1 C 37.1 C Heart Rate 99 79 Respiratory 14 16 Rate Blood Pressure 167/100 H 179/95 H O2 Saturation 99 99 Oxygen O2 Source Room air - Labs Labs: Laboratory Tests 07/07/22 15:46 Urine Color YELLOW Urine Clarity CLEAR Urine pH 6.5 Ur Specific [place] 1.010 Urine Protein NEGATIVE Urine Glucose (UA) NEGATIVE Urine Ketones NEGATIVE Urine Occult Blood NEGATIVE Urine Nitrite NEGATIVE Urine Bilirubin NEGATIVE Urine Urobilinogen 0.2 (NORMAL) Ur Leukocyte Esterase NEGATIVE Ur Microscopic Review NOT INDICATED Urine Culture Comments NOT INDICATED PD Medical Decision Making - ED course Complexity details: reviewed results, re-evaluated patient ED course: Patient is a 57-year-old with recent robotic hysterectomy presenting for evaluation of suprapubic pressure and feeling that she is not emptying her bladder fully. Bladder scan was done which was not a postvoid but only shows 120 mL of urine in the bladder. Her urine analysis was checked and is negative for infection. She does have mild lower abdominal tenderness but this may be related to recent hysterectomy.I did offer further investigation with labs and imaging to rule out other causes of her pain. However patient states that she does not feel she needs that at this time and is comfortable holding off. She is aware that if her symptoms worsen at all that she should return immediately to the emergency department or certainly if she changes her mind about wanting further testing. Repeat abdominal exam is relatively benign. There is no rebound, no guarding, no distention or mass Departure - Departure Disposition: 01 Home, Self Care Clinical Impression: Suprapubic pain Condition: Stable Instructions: ED Abdominal Pain Female Non-Specific Abdominal Pain Comments: The exact cause of your symptoms is unclear. It could be related to the natural healing process from your surgery. Your bladder scan does not show that you are holding onto too much urine and your urine test is negative for an infection. We did discuss possibly pursuing further investigation with labs and imaging with a CT scan but you have opted to hold off at this time. I feel this is reasonable. However if it anytime it seems that your symptoms or not improving or worsening or you change your mind and want further evaluation please return to the emergency department.
--- OUTSIDE RECORDS SUMMARY | 2022-07-07 15:44 | EXTERNAL MEDICAL SUMMARY RPT | Continuity of Care Document ---
:1965 Author Organization [facility] Address [address] [place] [address] Phone Care Team Providers Name Role Phone Unavailable Unavailable Unavailable Kimmy Bianchi Unavailable Unavailable Allergies No information. Encounters No information. Functional Status No information. Immunizations No information. Medications date description facility 2022-04-11 00:00 hydrochlorothiazide [facility] 2022-05-25 00:00 hydrochlorothiazide [facility] 2022-05-28 00:00 hydrochlorothiazide [facility] 2022-05-29 00:00 hydrochlorothiazide [facility] 2022-05-31 00:00 hydrochlorothiazide [facility] 2022-06-04 00:00 hydrochlorothiazide [facility] 2022-06-26 00:00 hydrochlorothiazide [facility] [facility] 2022-06-26 00:00 spironolactone Walk[facility] 2022-05-31 00:00 levothyroxine Walk[facility]In [facility] 2022-04-11 00:00 hydrochlorothiazide [facility] 2022-05-25 00:00 hydrochlorothiazide [facility] 2022-05-28 00:00 hydrochlorothiazide [facility] [facility] 2022-05-29 00:00 hydrochlorothiazide [facility] 2022-05-31 00:00 hydrochlorothiazide [facility] 2022-06-04 00:00 hydrochlorothiazide [facility] 2022-06-26 00:00 hydrochlorothiazide [facility] 2022-05-31 00:00 levothyroxine [facility] [facility] 2022-06-26 00:00 spironolactone [facility] [facility] 2022-04-11 00:00 trazodone [facility] [facility] 2022-05-31 00:00 trazodone [facility] [facility] 2022-05-31 00:00 levothyroxine [facility] [facility] 2022-04-11 00:00 hydrochlorothiazide [facility] 2022-05-25 00:00 hydrochlorothiazide [facility] 2022-05-28 00:00 hydrochlorothiazide [facility] [facility] 2022-05-29 00:00 hydrochlorothiazide [facility] [facility] 2022-05-31 00:00 hydrochlorothiazide [facility] 2022-06-04 00:00 hydrochlorothiazide [facility] 2022-06-26 00:00 hydrochlorothiazide [facility] 2022-04-11 00:00 potassium chloride [facility] [facility] 2022-05-25 00:00 potassium chloride [facility] [facility] 2022-05-28 00:00 potassium chloride [facility] [facility] 2022-05-29 00:00 potassium chloride [facility] [facility] 2022-05-31 00:00 potassium chloride [facility] [facility] 2022-06-04 00:00 potassium chloride [facility] [facility] 2022-06-26 00:00 potassium chloride [facility] [facility] 2022-06-26 00:00 spironolactone [facility] [facility] 2022-04-11 00:00 potassium chloride [facility] [facility] 2022-05-25 00:00 potassium chloride [facility] [facility] 2022-05-28 00:00 potassium chloride [facility] [facility] 2022-05-29 00:00 potassium chloride [facility] [facility] 2022-05-31 00:00 potassium chloride [facility] [facility] 2022-06-04 00:00 potassium chloride [facility] [facility] 2022-06-26 00:00 potassium chloride [facility] [facility] 2022-06-26 00:00 spironolactone [facility] [facility] 2022-04-11 00:00 hydrochlorothiazide Walk[facility]In Clinic [facility] [facility] 2022-05-25 00:00 hydrochlorothiazide Walk[facility]In [facility] [facility] 2022-05-28 00:00 hydrochlorothiazide Walk[facility]In [facility] [facility] 2022-05-29 00:00 hydrochlorothiazide Walk[facility]In [facility] [facility] 2022-05-31 00:00 hydrochlorothiazide Walk[facility]In [facility] [facility] 2022-06-04 00:00 hydrochlorothiazide Walk[facility]In [facility] [facility] 2022-06-26 00:00 hydrochlorothiazide Walk[facility]In [facility] [facility] 2022-04-11 00:00 trazodone [facility] [facility] 2022-05-31 00:00 trazodone [facility] [facility] 2022-04-11 00:00 dextroamphetamine-amphetamine [facility] [facility] 2022-05-25 00:00 dextroamphetamine-amphetamine [facility] [facility] 2022-05-28 00:00 dextroamphetamine-amphetamine [facility] [facility] 2022-05-29 00:00 dextroamphetamine-amphetamine [facility] [facility] 2022-05-31 00:00 dextroamphetamine-amphetamine [facility] [facility] 2022-06-04 00:00 dextroamphetamine-amphetamine [facility] [facility] 2022-06-26 00:00 dextroamphetamine-amphetamine [facility] [facility] 2022-06-27 00:00 dextroamphetamine-amphetamine [facility] 2022-07-26 00:00 dextroamphetamine-amphetamine [facility] 2022-04-11 00:00 trazodone [facility] 2022-05-31 00:00 trazodone [facility] [facility] 2022-04-11 00:00 dextroamphetamine-amphetamine [facility] [facility] 2022-05-25 00:00 dextroamphetamine-amphetamine [facility] 2022-05-28 00:00 dextroamphetamine-amphetamine [facility] [facility] 2022-05-29 00:00 dextroamphetamine-amphetamine [facility] [facility] 2022-05-31 00:00 dextroamphetamine-amphetamine [facility] [facility] 2022-06-04 00:00 dextroamphetamine-amphetamine [facility] [facility] 2022-06-26 00:00 dextroamphetamine-amphetamine [facility] [facility] 2022-06-27 00:00 dextroamphetamine-amphetamine [facility] [facility] 2022-07-26 00:00 dextroamphetamine-amphetamine [facility] [facility] 2022-04-11 00:00 potassium chloride [facility] [facility] 2022-05-25 00:00 potassium chloride [facility] [facility] 2022-05-28 00:00 potassium chloride [facility] [facility] 2022-05-29 00:00 potassium chloride [facility] [facility] 2022-05-31 00:00 potassium chloride [facility] [facility] 2022-06-04 00:00 potassium chloride [facility] [facility] 2022-06-26 00:00 potassium chloride [facility] [facility] 2022-04-11 00:00 dextroamphetamine-amphetamine [facility] [facility] 2022-05-25 00:00 dextroamphetamine-amphetamine [facility] [facility] 2022-05-28 00:00 dextroamphetamine-amphetamine [facility] [facility] 2022-05-29 00:00 dextroamphetamine-amphetamine [facility] [facility] 2022-05-31 00:00 dextroamphetamine-amphetamine [facility] [facility] 2022-06-04 00:00 dextroamphetamine-amphetamine [facility] 2022-06-26 00:00 dextroamphetamine-amphetamine [facility] 2022-06-27 00:00 dextroamphetamine-amphetamine [facility] 2022-07-26 00:00 dextroamphetamine-amphetamine [facility] [facility] 2022-04-11 00:00 potassium chloride [facility] [facility] 2022-05-25 00:00 potassium chloride [facility] [facility] 2022-05-28 00:00 potassium chloride [facility] 2022-05-29 00:00 potassium chloride [facility] 2022-05-31 00:00 potassium chloride [facility] [place] [facility] 2022-06-04 00:00 potassium chloride [facility] [facility] 2022-06-26 00:00 potassium chloride [facility] [place] [facility] 2022-04-11 00:00 trazodone [facility] [place] [facility] 2022-05-31 00:00 [facility]odone [facility] [facility] 2022-04-11 00:00 dextroamphetamine-amphetamine [facility] 2022-05-25 00:00 dextroamphetamine-amphetamine [facility] [facility] 2022-05-28 00:00 dextroamphetamine-amphetamine [facility] 2022-05-29 00:00 dextroamphetamine-amphetamine [facility] [facility] 2022-05-31 00:00 dextroamphetamine-amphetamine [facility] [facility] 2022-06-04 00:00 dextroamphetamine-amphetamine [facility] 2022-06-26 00:00 dextroamphetamine-amphetamine [facility] 2022-06-27 00:00 dextroamphetamine-amphetamine [facility] 2022-07-26 00:00 dextroamphetamine-amphetamine [facility] 2022-05-31 00:00 levothyroxine Walk[facility] [place] [facility] Problems date description facility 2022-04-11 00:00 Unspecified hypothyroidism Walk[facility] 2022-04-11 00:00 Shoulder joint pain Walk-In Clinic [facility] 2022-04-11 00:00 Attention deficit disorder of Walk-In Clinic Primary Care & childhood without mention of Ancillary S jeramy [facility] hyperactivity 2022-04-11 00:00 Attention deficit 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, predominantly inattentive Anci llary Services [facility] type 2022-04-11 00:00 Hypertensive disorder Walk[facility]In [facility] [facility] 2022-04-11 00:00 Unspecified essential hypertension [facility] [facility] 2022-04-11 00:00 Hypothyroidism [facility] 2022-04-11 00:00 Irritable bowel syndrome [facility] [facility] 2022-04-11 00:00 Pain in joint involving shoulder Walk- In [facility] & region [facility] 2022-04-11 00:00 Lumbago Walk[facility] 2022-04-11 00:00 Neck pain Walk[facility]In [facility] 2022-04-11 00:00 Hypothyroidism, unspecified Walk-In Cl in [facility] 2022-04-11 00:00 Attention-deficit 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, predominantly inattentive Anci llary Services [facility] type 2022-04-11 00:00 Essential (primary) hypertension [facility]- [facility] 2022-04-11 00:00 Irritable bowel syndrome without Walk- In [facility] diarrhea [facility] 2022-04-11 00:00 Pain in right shoulder [facility] 2022-04-11 00:00 Cervicalgia [facility] 2022-04-11 00:00 Low back pain [facility] 2022-05-25 00:00 Unspecified hypothyroidism [facility] 2022-05-25 00:00 Shoulder joint pain Walk-In Clinic [facility] 2022-05-25 00:00 Attention deficit disorder of Walk-In [facility] Primary Care & childhood without mention of Ancillary S ervices Eddi hyperactivity 2022-05-25 00:00 Attention deficit 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, predominantly inattentive Anci ll[facility] Services [facility] type 2022-05-25 00:00 Hypertensive disorder Walk-In Clinic [facility] 2022-05-25 00:00 Unspecified essential hypertension [facility] 2022-05-25 00:00 Hypothyroidism Walk[facility]In [facility] 2022-05-25 00:00 Irritable bowel syndrome [facility] 2022-05-25 00:00 Pain in joint involving shoulder Walk- In Clinic [facility] & region [facility] 2022-05-25 00:00 Lumbago Walk-In [facility] 2022-05-25 00:00 Neck pain Walk[facility]In [facility] 2022-05-25 00:00 Hypothyroidism, unspecified Walk-In Cl [facility]ic [facility] & [facility] Services [facility] 2022-05-25 00:00 Attention-deficit 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, predominantly inattentive Anci [facility] Services [place] type 2022-05-25 00:00 Essential (primary) hypertension Walk- In [facility] 2022-05-25 00:00 Irritable bowel syndrome without Walk- In Clinic [facility] & diarrhea [facility] Services [facility] 2022-05-25 00:00 Pain in right shoulder Walk[facility]In [facility] 2022-05-25 00:00 Cervicalgia Walk[facility]In [facility] 2022-05-25 00:00 Low back pain Walk[facility]In [facility] 2022-05-28 00:00 Unspecified hypothyroidism Walk[facility]In Cli [facility] 2022-05-28 00:00 Shoulder joint pain Walk-In Clinic [facility] 2022-05-28 00:00 Attention deficit disorder of Walk-In [facility] Primary Care & childhood without mention of Ancillary S ervices [place] hyperactivity 2022-05-28 00:00 Attention deficit 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, predominantly inattentive Anci llary Services [place] type 2022-05-28 00:00 Hypertensive disorder Walk[facility] [facility] 2022-05-28 00:00 Unspecified essential hypertension [facility] [place] 2022-05-28 00:00 Hypothyroidism [facility] [place] 2022-05-28 00:00 Irritable bowel syndrome Walk[facility]In [facility] Services [facility] 2022-05-28 00:00 Pain in joint involving shoulder Walk- In Clinic Primary Care & region [facility] Services [facility] 2022-05-28 00:00 Lumbago Walk-In [facility] 2022-05-28 00:00 Neck pain Walk-In [facility] 2022-05-28 00:00 Hypothyroidism, unspecified Walk-In Cl in Primary Care & Anc[facility] Services [facility] 2022-05-28 00:00 Attention-deficit 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, predominantly inattentive Anci [facility]ary Services [facility] type 2022-05-28 00:00 Essential (primary) hypertension Walk- In [facility] Services [facility] 2022-05-28 00:00 Irritable bowel syndrome without Walk- In Clinic [facility] & diarrhea [facility] Services [facility] 2022-05-28 00:00 Pain in right shoulder Walk[facility]In [facility] 2022-05-28 00:00 Cervicalgia Walk-In [facility] 2022-05-28 00:00 Low back pain Walk[facility]In [facility] 2022-05-29 00:00 Unspecified hypothyroidism Walk-In Cli [facility] & [facility] Services [facility] 2022-05-29 00:00 Long-term drug therapy Walk[facility]In [facility] 2022-05-29 00:00 Shoulder joint pain Walk-In Clinic [facility] Services [facility] 2022-05-29 00:00 Attention deficit disorder of Walk-In Clinic Primary Care & childhood without mention of Ancillary S ervices [facility] hyperactivity 2022-05-29 00:00 Attention deficit 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, predominantly inattentive Anci llary Services [facility] type 2022-05-29 00:00 Hypertensive disorder Walk-In Clinic [facility] 2022-05-29 00:00 Unspecified essential hypertension [facility] 2022-05-29 00:00 Hypothyroidism Walk[facility]In [facility] 2022-05-29 00:00 Irritable bowel syndrome [facility] Services [facility] 2022-05-29 00:00 Unspecified disorder of skin and Walk- In Clinic Primary Care & subcutaneous tissue [facility] 2022-05-29 00:00 Pain in joint involving shoulder Walk- In Clinic [facility] Care & region [facility] Services [facility] 2022-05-29 00:00 Lumbago Walk[facility]In [facility] 2022-05-29 00:00 Neck pain Walk[facility]In [facility] 2022-05-29 00:00 Disorder of skin Walk[facility]In [facility] 2022-05-29 00:00 Hypothyroidism, unspecified Walk-In Cl in Primary Care & Anc[facility] Services [facility] 2022-05-29 00:00 Attention-deficit 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, predominantly inattentive Anci llary Services [place] type 2022-05-29 00:00 Essential (primary) hypertension Walk- In [facility] 2022-05-29 00:00 Irritable bowel syndrome without Walk- In [facility] & diarrhea [facility] 2022-05-29 00:00 Other specified disorders of the Walk- In Clinic Primary Care & skin and subcutaneous tissue Ancillary S ervices [facility] 2022-05-29 00:00 Pain in right shoulder Walk[facility]In [facility] 2022-05-29 00:00 Cervicalgia Walk[facility]In [facility] 2022-05-29 00:00 Low back pain Walk[facility]In [facility] 2022-05-29 00:00 Long-term (current) use of other Walk- In [facility] medications [facility] [place] 2022-05-29 00:00 Other shelter (current) drug [facility] therapy [facility] [place] 2022-05-31 00:00 Unspecified hypothyroidism [facility] [place] 2022-05-31 00:00 Shoulder joint pain Walk[facility] [place] 2022-05-31 00:00 Attention deficit disorder of Walk-In [facility] Primary Care & childhood without mention of Ancillary S ervices [facility] hyperactivity 2022-05-31 00:00 Attention deficit 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, predominantly inattentive Anci llary Services [facility] type 2022-05-31 00:00 Hypertensive disorder Walk[facility]In [facility] 2022-05-31 00:00 Unspecified essential hypertension [facility] 2022-05-31 00:00 Hypothyroidism [facility] 2022-05-31 00:00 Irritable bowel syndrome [facility] 2022-05-31 00:00 Pain in joint involving shoulder Walk- In [facility] region [facility] [place] 2022-05-31 00:00 Lumbago [facility] [place] 2022-05-31 00:00 Neck pain [facility] 2022-05-31 00:00 Hypothyroidism, unspecified Walk[facility]In Cl [facility] 2022-05-31 00:00 Attention-deficit 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, predominantly inattentive Anci llary Services [facility] type 2022-05-31 00:00 Essential (primary) hypertension [facility] [place] 2022-05-31 00:00 Irritable bowel syndrome without [facility]- In [facility] diarrhea [facility] [facility] 2022-05-31 00:00 Pain in right shoulder [facility] 2022-05-31 00:00 Cervicalgia [facility] 2022-05-31 00:00 Low back pain [facility] [place] 2022-06-04 00:00 Unspecified hypothyroidism [facility] [place] 2022-06-04 00:00 Shoulder joint pain [facility] [place] 2022-06-04 00:00 Attention deficit disorder of Walk-In Clinic Primary Care & childhood without mention of Ancillary S ervices [facility] hyperactivity 2022-06-04 00:00 Attention deficit 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, predominantly inattentive Anci llary Services [facility] type 2022-06-04 00:00 Hypertensive disorder Walk[facility]In [facility] [place] 2022-06-04 00:00 Unspecified essential hypertension [facility] 2022-06-04 00:00 Hypothyroidism Walk[facility]In [facility] 2022-06-04 00:00 Irritable bowel syndrome Walk[facility] & Anc[facility] Services [facility] 2022-06-04 00:00 Pain in joint involving shoulder Walk- In [facility] & region [facility] [place] 2022-06-04 00:00 Lumbago Walk[facility] [place] 2022-06-04 00:00 Neck pain Walk-In [facility] 2022-06-04 00:00 Hypothyroidism, unspecified Walk-In Cl [facility] [place] 2022-06-04 00:00 Attention-deficit 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, predominantly inattentive Anci llary Services [facility] type 2022-06-04 00:00 Essential (primary) hypertension [facility]- [facility] [place] 2022-06-04 00:00 Irritable bowel syndrome without [facility] diarrhea [facility] 2022-06-04 00:00 Pain in right shoulder [facility] 2022-06-04 00:00 Cervicalgia [facility] Prim [facility] 2022-06-04 00:00 Low back pain [facility] Prim [facility] Geronimo peter 2022-06-26 00:00 Unspecified hypothyroidism Walk[facility] angeli [facility] Services [facility] 2022-06-26 00:00 Shoulder joint pain [facility] Gabi marjorie [facility] Services [facility] peter 2022-06-26 00:00 Attention deficit disorder of [facility] Primary Care & childhood without mention of Ancillary S ervices [facility] hyperactivity 2022-06-26 00:00 Attention deficit 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, predominantly inattentive Anci llary Services [facility] type 2022-06-26 00:00 Hypertensive disorder [facility]In [facility] P rimary Care & Anc[facility] Services [facility]eron[facility] peter 2022-06-26 00:00 Unspecified essential hypertension [facility] peter 2022-06-26 00:00 Hypothyroidism [facility] Prim [facility] Geronimo peetr 2022-06-26 00:00 Irritable bowel syndrome [facility] & Anc[facility] Services [facility]eron[facility] peter 2022-06-26 00:00 Pain in joint involving shoulder [facility]- In [facility] Primary Care & region Ancillary Services [facility] peter 2022-06-26 00:00 Lumbago Walk[facility] Prim [facility] peter 2022-06-26 00:00 Neck pain [facility] Prim [facility] peter 2022-06-26 00:00 Hypothyroidism, unspecified [facility] & [facility] Services [facility]eron[facility] peter 2022-06-26 00:00 Attention-deficit 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, predominantly inattentive Anci [facility] Services [facility] type 2022-06-26 00:00 Essential (primary) hypertension [facility] Services Geronimo epter 2022-06-26 00:00 Irritable bowel syndrome without [facility]- [facility] & diarrhea [facility] Services [facility] peter 2022-06-26 00:00 Pain in right shoulder [facility] peter 2022-06-26 00:00 Cervicalgia [facility] peter 2022-06-26 00:00 Low back pain [facility] peter Procedures date description facility 2022-05-29 00:00 Visit Code Hold [facility] 2022-05-29 00:00 Drug screen, In Clinic [facility] Results/Labs test date author facility value unit interpret ation Result panel 1 (unknown) (no date) (unknown) Walk-In (no value) (units ([facility]own[facility] Primary unknown) [facility] Result panel 2 (unknown) (no date) (unknown) Walk-In (no value) (units [facility]own[facility] Primary unknown) [facility] Result panel 3 (unknown) (no date) (unknown) Walk-In (no value) (units [facility]own[facility] Primary unknown) [facility] Result panel 4 (unknown) (no date) (unknown) Walk-In (no value) (units [facility]own[facility] Primary unknown) [facility] Result panel 5 (unknown) (no date) (unknown) Walk-[facility] (no value) (units [facility] Primary unknown) [facility] Result panel 6 (unknown) (no date) (unknown) Walk-In (no value) ([facility] Primary unknown) [facility] Result panel 7 (unknown) (no date) (unknown) Walk-In (no value) ([facility] Primary unknown) [facility] Result panel 8 (unknown) (no date) (unknown) Walk-In (no value) (units [facility]own[facility] Primary unknown) [facility] Result panel 9 (unknown) (no date) (unknown) Walk-In (no value) ([facility] Primary unknown) [facility] Result panel 10 (unknown) (no date) (unknown) Walk-In (no value) ([facility]own[facility] Primary unknown) [facility] Result panel 11 (unknown) (no date) (unknown) Walk-In (no value) (units [facility]own[facility] Primary unknown) [facility] Result panel 12 (unknown) (no date) (unknown) Walk-In (no value) ([facility]own[facility] Primary unknown) [facility] Result panel 13 (unknown) (no date) (unknown) Walk-In (no value) ([facility]own[facility] Primary unknown[facility] Result panel 14 (unknown) (no date) (unknown) Walk-In (no value) (units [facility]own[facility] Primary unknown) [facility] Result panel 15 (unknown) (no date) (unknown) Walk-In (no value) (units ([facility]own[facility] Primary unknown) [facility] Result panel 16 (unknown) (no date) (unknown) Walk-In (no value) ([facility]own[facility] unknown[facility] Result panel 17 (unknown) (no date) (unknown) Walk-In (no value) ([facility]own[facility] Primary unknown) [facility] Result panel 18 (unknown) (no date) (unknown) Walk-In (no value) ([facility]own[facility] unknown[facility] Result panel 19 (unknown) (no date) (unknown) Walk-In (no value) ([facility]own[facility] Primary unknown[facility] Result panel 20 (unknown) (no date) (unknown) Walk-In (no value) ([facility] Primary unknown) [facility] Result panel 21 (unknown) (no date) (unknown) Walk-In (no value) (units [facility]own[facility] Primary unknown) [facility] Result panel 22 (unknown) (no date) (unknown) Walk-In (no value) (units [facility]own[facility] Primary unknown[facility] Result panel 23 (unknown) (no date) (unknown) Walk-In (no value) ([facility] unknown[facility] Result panel 24 (unknown) (no date) (unknown) Walk-In (no value) (units [facility]own[facility] unknown) [facility] Result panel 25 (unknown) (no date) (unknown) Walk-In (no value) ([facility]own[facility] unknown[facility] Result panel 26 (unknown) (no date) (unknown) Walk-In (no value) ([facility] unknown[facility] Result panel 27 (unknown) (no date) (unknown) Walk-In (no value) ([facility]own[facility] unknown[facility] Result panel 28 (unknown) (no date) (unknown) Walk-In (no value) ([facility]own[facility] Primary unknown[facility] Result panel 29 (unknown) (no date) (unknown) Walk-In (no value) ([facility]own[facility] unknown[facility] Result panel 30 (unknown) (no date) (unknown) Walk-In (no value) (units [facility]own[facility] Primary unknown[facility] Result panel 31 (unknown) (no date) (unknown) Walk-In (no value) (units [facility]own[facility] unknown[facility] Result panel 32 (unknown) (no date) (unknown) Walk-In (no value) ([facility]own[facility] unknown[facility] Result panel 33 (unknown) (no date) (unknown) Walk-In (no value) (units [facility]own[facility] unknown[facility] Result panel 34 (unknown) (no date) (unknown) Walk-In (no value) (units [facility]own[facility] unknown[facility] Result panel 35 (unknown) (no date) (unknown) Walk-In (no value) ([facility]own[facility] Primary unknown[facility] Result panel 36 (unknown) (no date) (unknown) Walk-In (no value) ([facility]own[facility] unknown[facility] Result panel 37 (unknown) (no date) (unknown) Walk-In (no value) ([facility]own[facility] unknown[facility] Result panel 38 (unknown) (no date) (unknown) Walk-In (no value) ([facility] unknown[facility] Result panel 39 (unknown) (no date) (unknown) Walk-[facility] (no value) ([facility] unknown[facility] Result panel 40 (unknown) (no date) (unknown) Walk-[facility] (no value) ([facility]own[facility] unknown[facility] Result panel 41 (unknown) (no date) (unknown) Walk-[facility] (no value) ([facility]own[facility] unknown[facility] Result panel 42 (unknown) (no date) (unknown) Walk-[facility] (no value) ([facility] unknown[facility] Result panel 43 (unknown) (no date) (unknown) Walk-[facility] (no value) ([facility] unknown[facility] Result panel 44 (unknown) (no date) (unknown) Walk-In (no value) ([facility] unknown[facility] Result panel 45 (unknown) (no date) (unknown) Walk-[facility] (no value) ([facility] unknown[facility] Result panel 46 (unknown) (no date) (unknown) Walk-[facility] (no value) ([facility] unknown[facility] Result panel 47 (unknown) (no date) (unknown) Walk-In (no value) ([facility] unknown[facility] Result panel 48 (unknown) (no date) (unknown) Walk-[facility] (no value) ([facility] unknown[facility] Result panel 49 (unknown) (no date) (unknown) Walk-In (no value) ([facility] unknown[facility] Result panel 50 (unknown) (no date) (unknown) Walk-In (no value) ([facility] unknown[facility] Result panel 51 (unknown) (no date) (unknown) Walk-In (no value) ([facility] unknown[facility] Result panel 52 (unknown) (no date) (unknown) Walk-In (no value) ([facility] unknown[facility] Result panel 53 (unknown) (no date) (unknown) Walk-[facility] (no value) ([facility] unknown[facility] Result panel 54 (unknown) (no date) (unknown) Walk-[facility] (no value) ([facility]own[facility] unknown[facility] Result panel 55 (unknown) (no date) (unknown) Walk-In (no value) ([facility] unknown[facility] Result panel 56 (unknown) (no date) (unknown) Walk-[facility] (no value) ([facility]own[facility] unknown[facility] Result panel 57 (unknown) (no date) (unknown) Walk-In (no value) ([facility]own[facility] unknown[facility] Result panel 58 (unknown) (no date) (unknown) Walk-In (no value) ([facility]own[facility] unknown[facility] Result panel 59 (unknown) (no date) (unknown) Walk-[facility] (no value) ([facility]own[facility] unknown[facility] Result panel 60 (unknown) (no date) (unknown) Walk-[facility] (no value) (units [facility]own[facility] unknown[facility] Result panel 61 (unknown) (no date) (unknown) Walk-In (no value) (units [facility]own[facility] unknown[facility] Result panel 62 (unknown) (no date) (unknown) Walk-[facility] (no value) (units [facility]own[facility] unknown[facility] Result panel 63 (unknown) (no date) (unknown) Walk-In (no value) (units [facility]own[facility] unknown[facility] Result panel 64 (unknown) (no date) (unknown) Walk-In (no value) (units ([facility] nown[facility] unknown[facility] Result panel 65 (unknown) (no date) (unknown) Walk-In (no value) (units [facility]own[facility] unknown[facility] Result panel 66 (unknown) (no date) (unknown) Walk-In (no value) (units [facility] nown[facility] unknown[facility] Result panel 67 (unknown) (no date) (unknown) Walk-In (no value) (units [facility]own[facility] unknown[facility] Result panel 68 (unknown) (no date) (unknown) Walk-[facility] (no value) (units ([facility]own[facility] unknown[facility] Result panel 69 (unknown) (no date) (unknown) Walk-[facility] (no value) (units [facility] nown[facility] unknown[facility] Result panel 70 (unknown) (no date) (unknown) Walk-[facility] (no value) (units ([facility]own[facility] unknown[facility] Result panel 71 (unknown) (no date) (unknown) Walk-In (no value) (units ([facility] nown[facility] unknown[facility] Result panel 72 (unknown) (no date) (unknown) Walk-[facility] (no value) (units ([facility]own[facility] unknown[facility] Result panel 73 (unknown) (no date) (unknown) Walk-[facility] (no value) (units [facility]own[facility] unknown[facility] Result panel 74 (unknown) (no date) (unknown) Walk-[facility] (no value) ([facility]own[facility] unknown[facility] Result panel 75 (unknown) (no date) (unknown) Walk-[facility] (no value) ([facility] Result panel 76 (unknown) (no date) (unknown) Walk-[facility] (no value) (units [facility]own[facility] unknown[facility] Result panel 77 (unknown) (no date) (unknown) Walk-In (no value) (units [facility]own[facility] unknown[facility] Result panel 78 (unknown) (no date) (unknown) Walk-[facility] (no value) (units ([facility]own[facility] unknown[facility] Result panel 79 (unknown) (no date) (unknown) Walk-[facility] (no value) ([facility]own[facility] unknown[facility] Result panel 80 (unknown) (no date) (unknown) Walk-[facility] (no value) ([facility]own[facility] unknown[facility] Result panel 81 (unknown) (no date) (unknown) Walk-[facility] (no value) ([facility]own[facility] Result panel 82 (unknown) (no date) (unknown) Walk-[facility] (no value) ([facility] Result panel 83 (unknown) (no date) (unknown) Walk-[facility] (no value) ([facility] Result panel 84 (unknown) (no date) (unknown) Walk-[facility] (no value) ([facility] Result panel 85 (unknown) (no date) (unknown) Walk-[facility] (no value) ([facility]own[facility] unknown[facility] Result panel 86 (unknown) (no date) (unknown) Walk-[facility] (no value) (units [facility] nown[facility] Result panel 87 (unknown) (no date) (unknown) Walk-[facility] (no value) (units ([facility]own[facility] unknown[facility] Result panel 88 (unknown) (no date) (unknown) Walk-[facility] (no value) ([facility] ([facility] Result panel 89 (unknown) (no date) (unknown) Walk-[facility] (no value) (units [facility]own[facility] unknown[facility] Result panel 90 (unknown) (no date) (unknown) Walk-[facility] (no value) (units ([facility] nown[facility] unknown[facility] Result panel 91 (unknown) (no date) (unknown) Walk-[facility] (no value) (units ([facility] nown[facility] unknown[facility] Result panel 92 (unknown) (no date) (unknown) Walk-[facility] (no value) (units ([facility] nown[facility] unknown[facility] Result panel 93 (unknown) (no date) (unknown) Walk-[facility] (no value) (units ([facility] nown[facility] unknown[facility] Result panel 94 (unknown) (no date) (unknown) Walk-In (no value) (units ([facility] nown[facility] unknown[facility] Result panel 95 (unknown) (no date) (unknown) Walk-[facility] (no value) (units ([facility]own[facility] Result panel 96 (unknown) (no date) (unknown) Walk-[facility] (no value) (units ([facility] nown[facility] unknown[facility] Result panel 97 (unknown) (no date) (unknown) Walk-In (no value) (units ([facility] nown[facility] unknown[facility] Result panel 98 (unknown) (no date) (unknown) Walk-[facility] (no value) (units ([facility] nown[facility] unknown[facility] Result panel 99 (unknown) (no date) (unknown) Walk-[facility] (no value) (units ([facility] nown[facility] unknown[facility] Result panel 100 (unknown) (no date) (unknown) Walk-[facility] (no value) (units ([facility] nown[facility] unknown[facility] Result panel 101 (unknown) (no date) (unknown) Walk-[facility] (no value) (units ([facility] nown[facility] unknown[facility] Result panel 102 (unknown) (no date) (unknown) Walk-[facility] (no value) (units ([facility] nown[facility] unknown[facility] Result panel 103 (unknown) (no date) (unknown) Walk-[facility] (no value) (units ([facility] nown[facility] unknown[facility] Result panel 104 (unknown) (no date) (unknown) Walk-[facility] (no value) (units ([facility] nown[facility] unknown[facility] Result panel 105 (unknown) (no date) (unknown) Walk-[facility] (no value) (units ([facility] nown[facility] unknown[facility] Result panel 106 (unknown) (no date) (unknown) Walk-[facility] (no value) (units ([facility] nown[facility] unknown[facility] Result panel 107 (unknown) (no date) (unknown) Walk-[facility] (no value) (units ([facility] nown[facility] unknown[facility] Result panel 108 (unknown) (no date) (unknown) Walk-[facility] (no value) (units ([facility] nown[facility] unknown[facility] Result panel 109 (unknown) (no date) (unknown) Walk-[facility] (no value) (units ([facility] nown[facility] unknown[facility] Result panel 110 (unknown) (no date) (unknown) Walk-[facility] (no value) (units ([facility] nown[facility] unknown[facility] Result panel 111 (unknown) (no date) (unknown) Walk-In (no value) (units ([facility] nown[facility] unknown[facility] Result panel 112 (unknown) (no date) (unknown) Walk-In (no value) (units ([facility] nown[facility] unknown[facility] Result panel 113 (unknown) (no date) (unknown) Walk-In (no value) (units ([facility] nown[facility] unknown[facility] Result panel 114 (unknown) (no date) (unknown) Walk-In (no value) (units ([facility] nown[facility] unknown[facility] Result panel 115 (unknown) (no date) (unknown) Walk-In (no value) (units ([facility] nown[facility] unknown[facility] Result panel 116 (unknown) (no date) (unknown) Walk-In (no value) (units ([facility] nown[facility] unknown[facility] Result panel 117 (unknown) (no date) (unknown) Walk-In (no value) (units ([facility] nown[facility] unknown[facility] Result panel 118 (unknown) (no date) (unknown) Walk-In (no value) (units ([facility] nown[facility] unknown[facility] Result panel 119 (unknown) (no date) (unknown) Walk-In (no value) (units ([facility] nown[facility] unknown[facility] Result panel 120 (unknown) (no date) (unknown) Walk-In (no value) (units ([facility] nown[facility] unknown[facility] Result panel 121 (unknown) (no date) (unknown) Walk-In (no value) (units ([facility] nown[facility] unknown[facility] Result panel 122 (unknown) (no date) (unknown) Walk-In (no value) (units ([facility] nown[facility] unknown[facility] Result panel 123 (unknown) (no date) (unknown) Walk-In (no value) (units ([facility] nown[facility] unknown[facility] Result panel 124 (unknown) (no date) (unknown) Walk-In (no value) (units ([facility] nown[facility] unknown[facility] Result panel 125 (unknown) (no date) (unknown) Walk-In (no value) (units ([facility] nown[facility] unknown[facility] Result panel 126 (unknown) (no date) (unknown) Walk-In (no value) (units ([facility] nown) [facility] unknown[facility] Result panel 127 (unknown) (no date) (unknown) Walk-In (no value) (units ([facility] nown[facility] Primary unknown[facility] Result panel 128 (unknown) (no date) (unknown) Walk-In (no value) (units ([facility] nown) [facility] Primary unknown[facility] Result panel 129 (unknown) (no date) (unknown) Walk-In (no value) (units ([facility] nown[facility] unknown[facility] Result panel 130 (unknown) (no date) (unknown) Walk-In (no value) (units ([facility] nown[facility] unknown[facility] Result panel 131 (unknown) (no date) (unknown) Walk-In (no value) (units ([facility] nown[facility] unknown[facility] Result panel 132 (unknown) (no date) (unknown) Walk-In (no value) (units ([facility] nown[facility] unknown[facility] Result panel 133 (unknown) (no date) (unknown) Walk-In (no value) (units ([facility] nown) [facility] Primary unknown) [facility] Result panel 134 (unknown) (no date) (unknown) Walk-In (no value) (units ([facility] nown[facility] Primary unknown[facility] Result panel 135 (unknown) (no date) (unknown) Walk-In (no value) (units ([facility] nown[facility] Primary unknown) [facility] Result panel 136 (unknown) (no date) (unknown) Walk-In (no value) (units ([facility] nown[facility] Primary unknown[facility] Result panel 137 (unknown) (no date) (unknown) Walk-In (no value) (units ([facility] nown[facility] unknown[facility] Result panel 138 (unknown) (no date) (unknown) Walk-In (no value) (units ([facility] nown[facility] unknown[facility] Result panel 139 (unknown) (no date) (unknown) Walk-In (no value) (units ([facility] nown[facility] unknown[facility] Result panel 140 (unknown) (no date) (unknown) Walk-In (no value) (units ([facility] nown[facility] unknown[facility] Result panel 141 (unknown) (no date) (unknown) Walk-In (no value) (units ([facility] nown[facility] unknown[facility] Result panel 142 (unknown) (no date) (unknown) Walk-In (no value) (units ([facility] nown[facility] unknown[facility] Result panel 143 (unknown) (no date) (unknown) Walk-In (no value) (units ([facility] nown[facility] unknown[facility] Result panel 144 (unknown) (no date) (unknown) Walk-In (no value) (units ([facility] nown[facility] unknown[facility] Result panel 145 (unknown) (no date) (unknown) Walk-In (no value) (units ([facility] nown[facility] unknown[facility] Result panel 146 (unknown) (no date) (unknown) Walk-In (no value) (units ([facility] nown[facility] unknown[facility] Result panel 147 (unknown) (no date) (unknown) Walk-In (no value) (units ([facility] nown) [facility] unknown[facility] Result panel 148 (unknown) (no date) (unknown) Walk-In (no value) (units (unk nown[facility] unknown[facility] Result panel 149 (unknown) (no date) (unknown) Walk-In (no value) (units ([facility] nown[facility] unknown[facility] Result panel 150 (unknown) (no date) (unknown) Walk-In (no value) (units ([facility] nown[facility] unknown[facility] Result panel 151 (unknown) (no date) (unknown) Walk-In (no value) (units ([facility] nown[facility] unknown[facility] Result panel 152 (unknown) (no date) (unknown) Walk-In (no value) (units ([facility] nown[facility] unknown[facility] Result panel 153 (unknown) (no date) (unknown) Walk-In (no value) (units ([facility] nown[facility] unknown[facility] Result panel 154 (unknown) (no date) (unknown) Walk-In (no value) (units ([facility] nown) [facility] unknown[facility] Result panel 155 (unknown) (no date) (unknown) [facility] (no value[facility] Result panel 156 (unknown) (no date) (unknown) [facility] (no value) [facility] Result panel 157 (unknown) (no date) (unknown) [facility] (no value) [facility] Result panel 158 (unknown) (no date) (unknown) [facility] (no value) [facility] Result panel 159 (unknown) (no date) (unknown) [facility] (no value) [facility] Result panel 160 (unknown) (no date) (unknown) [facility] (no value) [facility] Result panel 161 (unknown) (no date) (unknown) [facility] (no value) [facility] Result panel 162 (unknown) (no date) (unknown) [facility] (no value) [facility] Result panel 163 (unknown) (no date) (unknown) [facility] (no value) [facility] Result panel 164 (unknown) (no date) (unknown) [facility] (no value) [facility] Result panel 165 (unknown) (no date) (unknown) [facility] (no value) [facility] Result panel 166 (unknown) (no date) (unknown) [facility] (no value) [facility] Result panel 167 (unknown) (no date) (unknown) [facility] (no value) [facility] Result panel 168 (unknown) (no date) (unknown) [facility] (no value) [facility] Result panel 169 (unknown) (no date) (unknown) [facility] (no value) [facility] Result panel 170 (unknown) (no date) (unknown) [facility] (no value) [facility] Result panel 171 (unknown) (no date) (unknown) [facility] (no value) [facility] Result panel 172 (unknown) (no date) (unknown) [facility] (no value) [facility] Result panel 173 (unknown) (no date) (unknown) [facility] (no value) [facility] Result panel 174 (unknown) (no date) (unknown) [facility] (no value) [facility] Result panel 175 (unknown) (no date) (unknown) [facility] (no value) [facility] Result panel 176 (unknown) (no date) (unknown) [facility] (no value) [facility] Result panel 177 (unknown) (no date) (unknown) [facility] (no value) [facility] Result panel 178 (unknown) (no date) (unknown) [facility] (no value) [facility] Result panel 179 (unknown) (no date) (unknown) [facility] (no value) [facility] Result panel 180 (unknown) (no date) (unknown) [facility] (no value) [facility] Result panel 181 (unknown) (no date) (unknown) [facility] (no value) [facility] Result panel 182 (unknown) (no date) (unknown) [facility] (no value) [facility] Result panel 183 (unknown) (no date) (unknown) [facility] (no value) [facility] Result panel 184 (unknown) (no date) (unknown) [facility] (no value) [facility] Result panel 185 (unknown) (no date) (unknown) [facility] (no value) [facility] Result panel 186 (unknown) (no date) (unknown) [facility] (no value) [facility] Result panel 187 (unknown) (no date) (unknown) [facility] (no value) [facility] Result panel 188 (unknown) (no date) (unknown) [facility] (no value) [facility] Result panel 189 (unknown) (no date) (unknown) [facility] (no value) [facility] Result panel 190 (unknown) (no date) (unknown) [facility] (no value) [facility] Result panel 191 (unknown) (no date) (unknown) [facility] (no value) [facility] Result panel 192 (unknown) (no date) (unknown) [facility] (no value) [facility] Result panel 193 (unknown) (no date) (unknown) [facility] (no value) [facility] Result panel 194 (unknown) (no date) (unknown) [facility]no value[facility] Result panel 195 (unknown) (no date) (unknown) [facility] (no value) [facility] Result panel 196 (unknown) (no date) (unknown) [facility] (no value) [facility] Result panel 197 (unknown) (no date) (unknown) [facility] (no value) [facility] Result panel 198 (unknown) (no date) (unknown) [facility] (no value) [facility] Result panel 199 (unknown) (no date) (unknown) [facility] (no value) [facility] Result panel 200 (unknown) (no date) (unknown) [facility] (no value) [facility] Result panel 201 (unknown) (no date) (unknown) [facility] (no value) [facility] Result panel 202 (unknown) (no date) (unknown) [facility] (no value) [facility] Result panel 203 (unknown) (no date) (unknown) [facility] (no value) [facility] Result panel 204 (unknown) (no date) (unknown) [facility] (no value) [facility] Result panel 205 (unknown) (no date) (unknown) [facility] (no value) [facility] Result panel 206 (unknown) (no date) (unknown) [facility] (no value) [facility] Result panel 207 (unknown) (no date) (unknown) [facility] (no value) [facility] Result panel 208 (unknown) (no date) (unknown) [facility] (no value) [facility] Result panel 209 (unknown) (no date) (unknown) [facility] (no value) [facility] Result panel 210 (unknown) (no date) (unknown) [facility] (no value) [facility] Result panel 211 (unknown) (no date) (unknown) [facility] (no value) [facility] Result panel 212 (unknown) (no date) (unknown) [facility] (no value) [facility] Result panel 213 (unknown) (no date) (unknown) [facility] (no value) [facility] Result panel 214 (unknown) (no date) (unknown) [facility] (no value) [facility] Result panel 215 (unknown) (no date) (unknown) [facility] (no value) [facility] Result panel 216 (unknown) (no date) (unknown) [facility] (no value) [facility] Result panel 217 (unknown) (no date) (unknown) [facility] (no value) [facility] Result panel 218 (unknown) (no date) (unknown) [facility] (no value) [facility] Result panel 219 (unknown) (no date) (unknown) [facility] (no value) [facility] Result panel 220 (unknown) (no date) (unknown) [facility] (no value) [facility] Result panel 221 (unknown) (no date) (unknown) [facility] (no value) [facility] Result panel 222 (unknown) (no date) (unknown) [facility] (no value) [facility] Result panel 223 (unknown) (no date) (unknown) [facility] (no value) [facility] Result panel 224 (unknown) (no date) (unknown) [facility] (no value) [facility] Result panel 225 (unknown) (no date) (unknown) [facility] (no value) [facility] Result panel 226 (unknown) (no date) (unknown) [facility] (no value) [facility] Result panel 227 (unknown) (no date) (unknown) [facility] (no value) [facility] Result panel 228 (unknown) (no date) (unknown) [facility] (no value) [facility] Result panel 229 (unknown) (no date) (unknown) [facility] (no value) [facility] Result panel 230 (unknown) (no date) (unknown) [facility] (no value) [facility] Result panel 231 (unknown) (no date) (unknown) [facility] (no value) [facility] Result panel 232 (unknown) (no date) (unknown) [facility] (no value) [facility] Result panel 233 (unknown) (no date) (unknown) [facility] (no value) [facility] Result panel 234 (unknown) (no date) (unknown) [facility] (no value) [facility] Result panel 235 (unknown) (no date) (unknown) [facility] (no value) [facility] Result panel 236 (unknown) (no date) (unknown) [facility] (no value) [facility] Result panel 237 (unknown) (no date) (unknown) [facility] (no value) [facility] Result panel 238 (unknown) (no date) (unknown) [facility] (no value) [facility] Result panel 239 (unknown) (no date) (unknown) [facility] (no value) [facility] Result panel 240 (unknown) (no date) (unknown) [facility] (no value) [facility] Result panel 241 (unknown) (no date) (unknown) [facility] (no value) [facility] Result panel 242 (unknown) (no date) (unknown) [facility] (no value) [facility] Result panel 243 (unknown) (no date) (unknown) [facility] (no value) [facility] Result panel 244 (unknown) (no date) (unknown) [facility] (no value) [facility] Result panel 245 (unknown) (no date) (unknown) [facility] (no value) [facility] Result panel 246 (unknown) (no date) (unknown) [facility] (no value) [facility] Result panel 247 (unknown) (no date) (unknown) [facility] (no value) [facility] Result panel 248 (unknown) (no date) (unknown) [facility] (no value) [facility] Result panel 249 (unknown) (no date) (unknown) [facility] (no value) [facility] Result panel 250 (unknown) (no date) (unknown) [facility] (no value) [facility] Result panel 251 (unknown) (no date) (unknown) [facility] (no value) [facility] Result panel 252 (unknown) (no date) (unknown) [facility] (no value) [facility] Result panel 253 (unknown) (no date) (unknown) [facility] (no value) [facility] Result panel 254 (unknown) (no date) (unknown) [facility] (no value) [facility] Result panel 255 (unknown) (no date) (unknown) [facility] (no value) [facility] Result panel 256 (unknown) (no date) (unknown) [facility] (no value) [facility] Result panel 257 (unknown) (no date) (unknown) [facility] (no value) [facility] Result panel 258 (unknown) (no date) (unknown) [facility] (no value) [facility] Result panel 259 (unknown) (no date) (unknown) [facility] (no value) [facility] Result panel 260 (unknown) (no date) (unknown) [facility] (no value) [facility] Result panel 261 (unknown) (no date) (unknown) [facility] (no value) [facility] Result panel 262 (unknown) (no date) (unknown) [facility] (no value) [facility] Result panel 263 (unknown) (no date) (unknown) [facility] (no value) [facility] Result panel 264 (unknown) (no date) (unknown) [facility] (no value) [facility] Result panel 265 (unknown) (no date) (unknown) [facility] (no value) [facility] Result panel 266 (unknown) (no date) (unknown) [facility] (no value) [facility] Result panel 267 (unknown) (no date) (unknown) [facility] (no value) [facility] Result panel 268 (unknown) (no date) (unknown) [facility] (no value) [facility] Result panel 269 (unknown) (no date) (unknown) [facility] (no value) [facility] Result panel 270 (unknown) (no date) (unknown) [facility] (no value) [facility] Result panel 271 (unknown) (no date) (unknown) [facility] (no value) [facility] Result panel 272 (unknown) (no date) (unknown) [facility] (no value) [facility] Social History date description facility 2022-05-29 00:00 Former smoker [facility] Vital Signs date measurement value units 2022-05-29 00:00 BMI 18.55 kg/m2 2022-05-29 00:00 BP_diastolic 104 mmHg 2022-05-29 00:00 BP_systolic 177 mmHg 2022-05-29 00:00 heart_rate 107 /min 2022-05-29 00:00 height_metric 171.45 cm 2022-05-29 00:00 height_standard 67.5 in 2022-05-29 00:00 respiration_rate 16 /min 2022-05-29 00:00 temperature_metric 36.89 C 2022-05-29 00:00 temperature_standard 98.4 F 2022-05-29 00:00 weight_metric 54.34 kg 2022-05-29 00:00 weight_standard 119.8 lb
[2022-07-07 15:53] LABS: BILIRUBIN,URINE NEGATIVE (NEGATIVE); GLUCOSE, URINE (UA) NEGATIVE (NEGATIVE); KETONES,URINE (UA) NEGATIVE (NEGATIVE); LEUKOCYTE ESTERASE, URINE NEGATIVE (NEGATIVE); NITRITE,URINE NEGATIVE (NEGATIVE); OCCULT BLOOD,URINE NEGATIVE (NEGATIVE); PH,URINE 6.5 PH (5.0-7.5); PROTEIN,URINE NEGATIVE (NEGATIVE); UROBILINOGEN,URINE 0.2 (NORMAL) E.U./dL (NORMAL)
[2022-07-07 15:55] LABS: CLARITY,URINE CLEAR (CLEAR)
[2022-07-07 16:15] VITALS: BP 179/95
== END 2022-07-07 16:24 | disposition home or self-care (01) ==
LOC: ED 15:09
DX: R10.30 Lower abdominal pain, unspecified (principal)
CPT/HCPCS: 51798; 81001; 81003; 87086; 99283; 99284

== ENCOUNTER 2022-11-22 21:17 | Emergency (ER) | payer MEDICAID ==
[2022-11-22 21:31] VITALS: BP 186/91
[2022-11-22] MEDS ORDERED: KETOROLAC 30 MG/ML VIAL IM STA (22:07)
--- NOTE | 2022-11-22 22:09 | ED Physician Documentation ---
History of Present Illness - Stated complaint Stated Complaint: STIFF NECK,HEADACHE - Chief complaint Chief Complaint: Trauma Hd/Nk - History obtained from History obtained from: Patient - Additonal information Additional information: 57yF with pmh chronic neck pain, dislocated facet joint and arthritis in the neck, p/w neck pain X 9 days, improving with vicodin but she ran out. also with nonproductive cough, decreased appetite and nausea. denies fevers, hemoptysis PD PAST MEDICAL HISTORY - Past Medical History Past Medical History: Yes Cardiovascular: Hypertension Respiratory: None Neuro: None Endocrine/Autoimmune: HyPOthyroidism GI: None PATIENT ACCESS ASSOCIATE: None : None HEENT: None Psych: ADD/ADHD Musculoskeletal: Chronic back pain Derm: None - Past Surgical History Past Surgical History: Yes General: Appendectomy /PATIENT ACCESS ASSOCIATE: section - Present Medications Home Medications: Ambulatory Orders Medication Instructions Recorded Confirmed Levothyroxine [Synthroid] 25 mcg PO QDAC 11/12/12 06/05/16 hydroCHLOROthiazide 1 tab PO DAILY 06/05/14 06/05/16 [Hydrochlorothiazide] Dextroamphetamine/Amphetamine 20 mg PO BID #8 tablet 02/11/15 06/05/16 [Adderall 20 mg Tablet] HYDROcod/ACETAM 5/325 [Norris 5/325] 1 - 2 ea PO Q6H PRN #15 tablet 08/23/16 traZODone [Desyrel] 100 mg PO BID 08/23/16 08/23/16 Hydrocodone/Acetaminophen 1 each PO Q8H PRN #9 tablet 11/22/22 [Hydrocodone-Acetamin 5-300 mg] - Allergies Allergies/Adverse Reactions: Allergies Allergy/AdvReac Type Severity Reaction Status Date / Time Penicillins Allergy Intermediate Hives Verified 07/07/22 15:20 - Social History Does the pt smoke?: No Smoking Status: Never smoker Does the pt drink ETOH?: No Does the pt have substance abuse?: No - Immunizations Immunizations are current?: Yes - POLST Patient has POLST: No PD ED PE NORMAL - Vitals Vital signs reviewed: Yes - General General: Alert and oriented X 3, No acute distress, Well developed/nourished - HEENT HEENT: Atraumatic, PERRL, EOMI - Neck Neck: Supple, no meningeal sign - Cardiac Cardiac: RRR - Respiratory Respiratory: No respiratory distress, Clear bilaterally - Derm Derm: Normal color, Warm and dry Results - Vitals Vitals: Vital Signs - 24 hr 11/22/22 11/22/22 21:24 21:37 Temperature 36.2 C L Heart Rate 107 H Respiratory 16 18 Rate Blood Pressure 186/91 H O2 Saturation 100 Oxygen O2 Source Room air PD Medical Decision Making - ED course ED course: 57yF p/w acute on chronic neck pain in addition to nonproductive cough, nausea, fatigue. she is well appearing with benign exam, negative kernig and brudzinski signs. no fever. provided IM toradol and rx. return precautions given. plan to f/u with pcp. Departure - Departure Disposition: Home, Self Care Clinical Impression: Chronic neck pain, Cough Condition: Stable Instructions: ED Neck Pain No Trauma Prescriptions: Hydrocodone/Acetaminophen [Hydrocodone-Acetamin 5-300 mg] 1 each PO Q8H PRN #9 tablet PRN Reason: Pain >8 Comments: You were seen in the emergency department for cough, neck stiffness, and nausea. You may be coming down with a common cold virus. Please get lots of rest, stay well-hydrated, and consult with your pharmacist for [id number] medications Including dextromethorphan, cough suppressant, and guaifenesin, and expectorant that may be helpful. He is a cool-mist humidifier by the bedside at nighttime. Follow-up with your primary care provider in regards to your neck issues. Return to the emergency department if you have new or worsening symptoms or other concerns
== END 2022-11-22 22:40 | disposition home or self-care (01) ==
LOC: ED 21:17
DX: M54.2 Cervicalgia (principal); G89.29 Other chronic pain; R05.9 Cough, unspecified
CPT/HCPCS: 99283

== ENCOUNTER 2023-07-04 12:29 | Outpatient (CLI) | payer MEDICAID | END 2023-07-04 12:30 | disposition home or self-care (01) | LOC: DI 12:29 | PROVIDERS: ATTEND Registered Nurse | DX: R00.0 Tachycardia, unspecified (principal); R53.82 Chronic fatigue, unspecified; I10 Essential (primary) hypertension; Z82.49 Family history of ischemic heart disease and other diseases of the circulatory system; I08.1 Rheumatic disorders of both mitral and tricuspid valves | CPT/HCPCS: 36415; 80050; 80061; 83721; 93307 ==

== ENCOUNTER 2023-07-04 13:27 | Outpatient (CLI) | payer MEDICAID ==
[2023-07-04 13:51] LABS: BASOPHILS # (AUTO) 0.1 10^3/uL (0.0-0.1); BASOPHILS % (AUTO) 1.2 %; EOSINOPHILS # (AUTO) 0.1 10^3/uL (0.0-0.7); EOSINOPHILS % (AUTO) 0.4 %; HCT - HEMATOCRIT 38.5 % (37.0-47.0); HGB - HEMOGLOBIN 12.2 g/dL (12.0-16.0); LYMPHOCYTES % (AUTO) 16.1 %; MEAN CORPUSCULAR HEMOGLOBIN 28.8 pg (27.0-31.0); MEAN CORPUSCULAR HGB CONC 31.7 g/dL (32.0-36.0); MEAN PLATELET VOLUME 9.7 fL (7.9-10.8); MONOCYTES # (AUTO) 0.6 10^3/uL (0.0-1.0); MONOCYTES % (AUTO) 4.6 %; NEUTROPHILS # (AUTO) 9.4 10^3/uL (1.5-6.6); NEUTROPHILS % (AUTO) 77.2 %; PLT - PLATELET COUNT 509 10^3/uL (130-450); RED BLOOD COUNT 4.23 10^6/uL (4.20-5.40); RED CELL DISTRIBUTION WIDTH 12.8 % (12.0-15.0); WHITE BLOOD COUNT 12.2 x10^3/uL (4.8-10.8)
[2023-07-04 14:13] LABS: THYROID STIMULATING HORMONE 1.59 uIU/mL (0.34-5.60)
[2023-07-04 14:42] LABS: ALBUMIN 4.1 g/dL (3.2-5.5); ALBUMIN/GLOBULIN RATIO 1.3 (1.0-2.2); ALKALINE PHOSPHATASE 105 IU/L (42-121); ALT ALANINE AMINOTRANSFERASE 9 IU/L (10-60); AST ASPARTATE AMINOTRANSFERASE 16 IU/L (10-42); BILIRUBIN,TOTAL 0.4 mg/dL (0.2-1.0); BUN - BLOOD UREA NITROGEN 11 mg/dL (6-20); CALCIUM 9.7 mg/dL (8.5-10.3); CARBON DIOXIDE - CO2 30 mmol/L (21-32); CHLORIDE 98 mmol/L (101-111); CHOL/HDL RATIO 2.5 (<4.4); CHOLESTEROL 178 mg/dL; CREATININE 1.3 mg/dL (0.6-1.3); GFR - MDRD 42 (>89); GLUCOSE 109 mg/dL (74-104); HDL CHOLESTEROL 70 mg/dL; LDL CHOLESTEROL,CALCULATED 90 mg/dL; LDL/HDL RATIO 1.3 (<4.4); POTASSIUM 3.5 mmol/L (3.5-4.5); SODIUM 135 mmol/L (135-145); TOTAL PROTEIN 7.3 g/dL (6.4-8.9); TRIGLYCERIDES 90 mg/dL (48-352); VLDL CHOLESTEROL 18 mg/dL
== END 2023-07-04 13:28 | disposition home or self-care (01) ==
LOC: LAB 13:27
PROVIDERS: ATTEND Registered Nurse
DX: Z13.228 Encounter for screening for other metabolic disorders (principal); Z13.220 Encounter for screening for lipoid disorders; Z13.29 Encounter for screening for other suspected endocrine disorder; Z13.0 Encounter for screening for diseases of the blood and blood-forming organs and certain disorders involving the immune mechanism
CPT/HCPCS: 36415; 80050; 80061; 83721